=== PATIENT | male | born 1975 | race Caucasian/White ===

== ENCOUNTER → 2019-12-13 14:44 | Outpatient (BNVA) | payer MEDICARE, MEDICAID, SELFPAY | PROVIDERS: PCP Family Medicine; Visit Provider Urology | DX: Z76.89 Persons encountering health services in other specified circumstances (principal) | CPT/HCPCS: 99202 ==

== ENCOUNTER → 2020-01-10 11:13 | Outpatient (BNVA) | payer MEDICARE, MEDICAID, SELFPAY | PROVIDERS: PCP Family Medicine; Referring Provider Family Medicine; Visit Provider Urology | DX: Z76.89 Persons encountering health services in other specified circumstances (principal) | CPT/HCPCS: Q3014 ==

== ENCOUNTER 2020-01-27 07:23 | Outpatient (REF) | payer MEDICARE, MEDICAID, SELFPAY | END 2020-01-27 07:24 | disposition home or self-care (01) | LOC: HO.LAB 07:23 | PROVIDERS: Visit Provider Internal Medicine | DX: Z20.828 Contact with and (suspected) exposure to other viral communicable diseases (principal) | CPT/HCPCS: C9803; U0003 ==

== ENCOUNTER → 2020-02-26 14:39 | Outpatient (BNVA) | payer MEDICARE, MEDICAID, SELFPAY | PROVIDERS: PCP Family Medicine; Visit Provider Internal Medicine Cardiovascular Disease | DX: Q90.9 Down syndrome, unspecified (principal) | CPT/HCPCS: 93005; 99212 ==

== ENCOUNTER 2020-05-13 09:53 | Outpatient (REF) | payer MEDICARE, MEDICAID, SELFPAY ==
[2020-05-13 10:40] LABS: MANUAL DIFF FLAG NO
[2020-05-13 10:58] LABS: Basophils Absolute Auto 0.1 X10*3/uL (0.0-0.2); Basophils Percent Auto 1.9 % (0-2); Eosinophils Absolute Auto 0.1 X10*3/uL (0.0-0.4); Eosinophils Percent Auto 0.8 % (0-4); Hematocrit 45.6 % (42-52); Hemoglobin 15.3 g/dl (14.0-18.0); Imm Gran Pct Auto 1.6 % (0.0-0.4); Lymphocytes Absolute Auto 1.6 X10*3/uL (1.2-4.9); Mean Corpuscular HGB Conc 33.6 g/dl (31.0-36.0); Mean Corpuscular Hemoglobin 32.4 pg (27.0-33.0); Mean Corpuscular Volume 96.6 fL (80-98); Mean Platelet Volume 10.3 fL (9.4-12.4); Monocytes Absolute Auto 0.4 X10*3/uL (0.1-1.2); Monocytes Percent Auto 5.7 % (2-11); Neutrophils Absolute Auto 4.3 X10*3/uL (2.0-8.3); Platelet Count 199 X10*3/uL (160-400); Red Blood Count 4.72 X10*6/uL (4.60-5.80); Red Cell Distribution Width 12.9 % (11.0-16.0); White Blood Count 6.5 X10*3/uL (4.8-10.8)
[2020-05-13 11:21] LABS: Estimated Average Glucose 105 mg/dL; Hemoglobin A1c % 5.3 %
[2020-05-13 12:25] LABS: Alanine Aminotransferase 27 U/L (0-40); Albumin Level 4.4 g/dL (3.5-5.0); Alkaline Phosphatase 68 U/L (39-117); Anion Gap 13 (12-20); Aspartate Amino Transferase 31 U/L (5-37); Bilirubin Total 0.4 mg/dL (0.0-1.0); Blood Urea Nitrogen 12 mg/dL (9-16); Calcium 8.6 mg/dL (8.4-10.2); Carbon Dioxide 30 mmol/L (22-29); Chloride 102 mmol/L (96-108); Cholesterol 228 mg/dL; Estimated Glomerular Filt Rate > 60; Glucose Random 87 mg/dL (60-115); HDL Cholesterol 45 mg/dL; LDL Cholesterol Calculated 151 mg/dl; Potassium 4.9 mmol/L (3.3-5.1); Sodium 140 mmol/L (135-145); Total Protein 7.1 g/dL (6.5-8.0); Triglycerides 164 mg/dL
[2020-05-14 07:56] LABS: Prolactin 9.6 ng/mL (2.0-18.0)
== END 2020-05-13 09:54 | disposition home or self-care (01) ==
LOC: HO.LAB 09:53
PROVIDERS: PCP Family Medicine; Visit Provider Psychiatry & Neurology Child & Adolescent Psychiatry
DX: F29 Unspecified psychosis not due to a substance or known physiological condition (principal)
CPT/HCPCS: 36415; 80053; 80061; 83036; 84146; 85025

== ENCOUNTER → 2020-07-11 10:49 | Outpatient (BNVA) | payer MEDICARE, MEDICAID, SELFPAY | PROVIDERS: PCP Family Medicine; Visit Provider Urology | DX: R39.11 Hesitancy of micturition (principal); R39.14 Feeling of incomplete bladder emptying | CPT/HCPCS: 51798; 99212 ==

== ENCOUNTER → 2020-10-10 10:03 | Outpatient (BNVA) | payer MEDICARE, MEDICAID, SELFPAY | PROVIDERS: PCP Family Medicine; Visit Provider Urology | DX: R39.11 Hesitancy of micturition (principal); N32.0 Bladder-neck obstruction | CPT/HCPCS: 99212 ==

== ENCOUNTER → 2021-01-09 08:51 | Outpatient (BNVA) | payer MEDICARE, MEDICAID, SELFPAY | PROVIDERS: PCP Family Medicine; Visit Provider Urology | DX: N32.0 Bladder-neck obstruction (principal); R39.11 Hesitancy of micturition | CPT/HCPCS: 52000; 99212 ==

== ENCOUNTER → 2021-01-14 20:18 | Outpatient (REF) | payer MEDICARE, MEDICAID, SELFPAY | LOC: HO.SL 20:18 | PROVIDERS: Visit Provider Psychiatry & Neurology Neurology | DX: G47.33 Obstructive sleep apnea (adult) (pediatric) (principal) | CPT/HCPCS: 95811 ==

== ENCOUNTER → 2021-03-18 15:12 | Outpatient (BNVA) | payer MEDICARE, MEDICAID, SELFPAY | PROVIDERS: PCP Family Medicine; Referring Provider Family Medicine; Visit Provider Internal Medicine Cardiovascular Disease | DX: I45.10 Unspecified right bundle-branch block (principal) | CPT/HCPCS: 93005; 99212 ==

== ENCOUNTER 2021-03-31 09:43 | Day surgery (SDC) | payer MEDICARE, MEDICAID, SELFPAY ==
[2021-03-24 15:41] VITALS: BMI 33.8
--- NOTE | 2021-03-27 11:23 | MHC.SHP ---
Pre-Procedural Eval Section A Date of Service: 03/27/21 The patient is an INPATIENT: No Changes since office visit: No Cold of Flu in the past 2 weeks, No New Medical Problems, No Changes in Medication and No Patient answered all questions The History & Physical has been completed within 30 days and I have reviewed it.: Yes Section B Chief Complaint: bilateral cataract Allergies: Allergies Allergy/AdvReac Type Severity Reaction Status Date / Time lactose Allergy Intermediate Diarrhea Verified 03/24/21 15:40 Plan Diagnosis/Plan: Unchanged I have reviewed the history and physical and performed a pertinent physical examination on my patient. No changes have occurred unless specified.
--- NOTE | 2021-03-28 09:48 | HO.ANESPROP2 ---
Documented by User: Deepa Resendiz NP 03/28/21 09:50 HPI - Anesthesia Eval Consult details Narrative: 45yo M for Bilateral Cataract Extraction IOL Insertion PCP cleared Stable with cardiol 03/2021 No previous cataract on record Downs syndrome - resides at long term, Mom is guardian PMFSH Active Problems Active Problems: All Active Problems (Updated 03/25/21 @ 13:33 by Raquel Funes CNP) Fatigue (Acute) Bladder outlet obstruction (Acute) Feeling of incomplete bladder emptying (Acute) Urinary hesitancy (Acute) Down syndrome (Acute) Past Medical History Medical History Allergic rhinitis Anxiety disorder Chronic fatigue syndrome COVID-19 vaccine series completed Dermatitis Down syndrome H/O esophageal reflux Hx: recurrent pneumonia Hyperlipidemia Hypothyroidism Insomnia Joint pain ZEN (obstructive sleep apnea) Resides in alf care facility Surgical History Surgical History (Updated 03/24/21 @ 15:39 by Sil Lerma RN) History of lung surgery Hx of dental roman catholic Social History Social History Housing Other:: long term Are you a primary animal care taker to a significant other at home: No Do you presently have visiting nurse or other home services: No Patient Tobacco Use Status: Never used Tobacco Use of substances other than those prescribed or required for medical reasons: No Have you been hit, kicked, punched, or otherwise hurt by someone within the past year? If so, by whom?: No Advance Directives Information Provided: Yes (as above noted) Advance Directives on File: No Recently lost weight without trying: No Eating poorly because of decreased appetite: No Nutrition Risks: No Nutritional Risk Poor oral hygiene: No (has upper permanent bridge) Meds Allergies Allergy/AdvReac Type Severity Reaction Status Date / Time lactose Allergy Intermediate Diarrhea Verified 03/24/21 15:40 Home Medications Medication Instructions Recorded Confirmed Last Taken Type benztropine 0.5 mg tablet 0.5 mg PO DAILY 12/13/19 03/24/21 Unknown History cholestyramine (with sugar) 4 gram 1 ea PO DAILY 12/13/19 03/24/21 Unknown History powder for susp in a packet clindamycin phosphate 1 % topical 1 appl TOPICAL DAILY 12/13/19 03/24/21 Unknown History solution clonazepam 0.5 mg tablet 0.5 mg PO DAILY PRN 12/13/19 03/24/21 Unknown History donepezil 10 mg tablet 10 mg PO DAILY 12/13/19 03/24/21 Unknown History levothyroxine 88 mcg tablet 88 mcg PO DAILY 12/13/19 03/24/21 Unknown History paroxetine HCl 30 mg tablet 30 mg PO DAILY 12/13/19 03/24/21 Unknown History risperidone 0.5 mg tablet 0.5 mg PO BEDTIME 12/13/19 03/24/21 Unknown History cholecalciferol (vitamin D3) 25 25 mcg PO DAILY 02/26/20 03/24/21 Unknown History mcg (1,000 unit) capsule memantine 10 mg tablet 10 mg PO BID 02/26/20 03/24/21 Unknown History multivitamin 1 tab PO DAILY 02/26/20 03/24/21 Unknown History risperidone 1 mg tablet 1 mg PO QAM tab 02/26/20 03/24/21 Unknown History ammonium lactate 12 % topical cream 1 appl TOPICAL BID 07/11/20 03/24/21 Unknown History ketoconazole 2 % topical cream 1 appl TOPICAL DAILY 01/09/21 03/24/21 Unknown History Exam Exam Date and Time: March 28, 2021 0948 Height,Weight and Vital Signs: Height 5 ft 2 in Weight 83.915 kg Narrative Narrative: EKG 03/2021 NSR @ 62 Incomplete RBBB Assessment and Plan Assessment Anesthesia Assessment: Chart Reviewed Documented by User: Danica Baptiste MD 03/31/21 11:03 [facility] Past Medical History Medical History Allergic rhinitis Anxiety disorder Chronic fatigue syndrome COVID-19 vaccine series completed Dermatitis Down syndrome H/O esophageal reflux Hx: recurrent pneumonia Hyperlipidemia Hypothyroidism Insomnia Joint pain ZEN (obstructive sleep apnea) Resides in alf care facility Family History Family history of problems with anesthesia: No Surgical History Surgical History (Updated 03/24/21 @ 15:39 by Sil Lerma RN) History of lung surgery Hx of dental roman catholic History of Problems with Anesthesia: No Social History Social History Housing Other:: long term Are you a primary animal care taker to a significant other at home: No Do you presently have visiting nurse or other home services: No Patient Tobacco Use Status: Never used Tobacco Use of substances other than those prescribed or required for medical reasons: No Have you been hit, kicked, punched, or otherwise hurt by someone within the past year? If so, by whom?: No Advance Directives Information Provided: Yes (as above noted) Advance Directives on File: No Recently lost weight without trying: No Eating poorly because of decreased appetite: No Nutrition Risks: No Nutritional Risk Poor oral hygiene: No (has upper permanent bridge) Meds Allergies Allergy/AdvReac Type Severity Reaction Status Date / Time lactose Allergy Intermediate Diarrhea Verified 03/24/21 15:40 Home Medications Medication Instructions Recorded Confirmed Last Taken Type benztropine 0.5 mg tablet 0.5 mg PO DAILY 12/13/19 03/24/21 Unknown History cholestyramine (with sugar) 4 gram 1 ea PO DAILY 12/13/19 03/24/21 Unknown History powder for susp in a packet clindamycin phosphate 1 % topical 1 appl TOPICAL DAILY 12/13/19 03/24/21 Unknown History solution clonazepam 0.5 mg tablet 0.5 mg PO DAILY PRN 12/13/19 03/24/21 Unknown History donepezil 10 mg tablet 10 mg PO DAILY 12/13/19 03/24/21 Unknown History levothyroxine 88 mcg tablet 88 mcg PO DAILY 12/13/19 03/24/21 Unknown History paroxetine HCl 30 mg tablet 30 mg PO DAILY 12/13/19 03/24/21 Unknown History risperidone 0.5 mg tablet 0.5 mg PO BEDTIME 12/13/19 03/24/21 Unknown History cholecalciferol (vitamin D3) 25 25 mcg PO DAILY 02/26/20 03/24/21 Unknown History mcg (1,000 unit) capsule memantine 10 mg tablet 10 mg PO BID 02/26/20 03/24/21 Unknown History multivitamin 1 tab PO DAILY 02/26/20 03/24/21 Unknown History risperidone 1 mg tablet 1 mg PO QAM tab 02/26/20 03/24/21 Unknown History ammonium lactate 12 % topical cream 1 appl TOPICAL BID 07/11/20 03/24/21 Unknown History ketoconazole 2 % topical cream 1 appl TOPICAL DAILY 01/09/21 03/24/21 Unknown History Exam Airway Mallampati Class: II (Narrow pallate) TM Dist: >3cm Neck ROM: Full Heart: rrr Lungs: cta Assessment and Plan Assessment Anesthesia Assessment: Anesthesia Plan Discussed and Chart Reviewed Final Anesthetic Review Family History of Problems with Anesthesia: No History of Problems with Anesthesia: No NPO: Yes ASA Class: II Final Preanesthetic Review: No Changes in Pt Med Stat, Meds/Allgs Chart Reviewed and Consent Obtained/Reviewed Patient Risk: Intermediate Procedure Risk: Intermediate Anesthetic Plan Anesthetic Plan: MAC: Disposition: Standard PACU
[2021-03-31 10:31] VITALS: BP 129/68; PULSE 71; RESP 16; TEMP 36.2; O2SAT 99
[2021-03-31] MEDS: Tetracaine HCl/PF 0.5% Oph Sol 4 ML DROPS 1 DROP EYE-BOTH (10:53)
[2021-03-31] MEDS: Lactated Ringers 500 ML 50 ML IV (10:53)
[2021-03-31] MEDS: Tropicamide 1 % Ophth Sol 3 ML BTL 1 DROP EYE-BOTH ×3 (10:55→11:04)
[2021-03-31] MEDS: Phenylephrine HCL 2.5% Oph SoL 2 ML BOTTLE 1 DROP EYE-BOTH ×3 (10:58→11:08)
--- NOTE | 2021-03-31 13:30 | PC.NURSE ---
Consents for surgical procedure and anesthesia obtained via phone call to patients HCP and Mother, Arminda. Dr. Sanchez, Arminda Christy, and this RN all aware of plan to proceed with left eye cataract surgery under MAC and if case is switched to general anesthesia for any reason, both left eye and right eye cataract surgeries will be done.
[2021-03-31 13:40] VITALS: BP 107/61; PULSE 60; RESP 16; TEMP 36.4; O2SAT 95
--- NOTE | 2021-03-31 13:41 | HO.PNOPHT ---
Ophthalmology Procedure Procedure Date of Service: 03/31/21 Ophthalmology Viscoelastic: Healaustin Duet Dual Pack Pro Ophthalmology Lenses: TECCYNTHIA [id number] (21) Procedure Notes: PREOPERATIVE DIAGNOSIS: Decreased visual acuity left eye secondary to cataract POSTOPERATIVE DIAGNOSIS: Same PROCEDURE: Left cataract extraction with intraocular lens insertion SURGEON: Hermes Howard M.D. ANESTHESIA: Topical/MAC ESTIMATED BLOOD LOSS: None COMPLICATIONS: None After obtaining informed consent, the patient was brought to the operation room suite and placed in the supine position. After adequate sedation per anesthesia, topical drops of Tetracaine were given to the left eye. The eye was then prepped and draped in the usual sterile fashion. The operating room microscope was then positioned over the operative eye and a lid speculum placed. A paracentesis was created. Viscoelastic was then instilled into the anterior chamber. A three plane incision was then created temporally, utilizing a 2.85 mm keratome. Capsulotomy forceps were then utilized to create a circular tear capsulotomy. Hydrodissection and hydrodelineation were carried out until adequate mobilization of the nucleus occurred. Phacoemulsification was then utilized to remove the dense central nucleus followed by removal of the cortical material utilizing the automated aspiration irrigation unit. Viscoat elastic was instilled into the posterior capsular bag followed by placement of a posterior chamber intraocular lens without difficulty. The residual Viscoat elastic was then removed utilizing the automated IA machine. The wound was check and found to be watertight. The patient tolerated the procedure well and the lid speculum was removed. Intracameral injection of Vigamox 0.1 mL followed by a subtenon injection of Kenalog-40 0.2 mL were administered. The patient will be seen in the a.m.
== END 2021-03-31 15:25 | disposition home or self-care (01) ==
PROVIDERS: PCP Family Medicine; Visit Provider Ophthalmology
PROC: (CPT 66985; principal; 2021-03-31 07:30)
DX: H25.12 Age-related nuclear cataract, left eye (principal); H50.00 Unspecified esotropia; H54.7 Unspecified visual loss; Q90.9 Down syndrome, unspecified; E03.9 Hypothyroidism, unspecified; F41.1 Generalized anxiety disorder; F03.90 Unspecified dementia, unspecified severity, without behavioral disturbance, psychotic disturbance, mood disturbance, and anxiety; G47.33 Obstructive sleep apnea (adult) (pediatric); Z79.899 Other long term (current) drug therapy
CPT/HCPCS: 66984; J2250; J2405; J3010; J3300; V2632

== ENCOUNTER 2021-04-07 07:13 | Day surgery (SDC) | payer MEDICARE, MEDICAID, SELFPAY ==
[2021-04-02 14:03] VITALS: BMI 33.8
--- NOTE | 2021-04-03 08:25 | MHC.SHP ---
Pre-Procedural Eval Section A Date of Service: 04/03/21 The patient is an INPATIENT: No Changes since office visit: No Cold of Flu in the past 2 weeks, No New Medical Problems, No Changes in Medication and No Patient answered all questions The History & Physical has been completed within 30 days and I have reviewed it.: Yes Section B Chief Complaint: cataract right eye Allergies: Allergies Allergy/AdvReac Type Severity Reaction Status Date / Time lactose Allergy Intermediate Diarrhea Verified 03/24/21 15:40 Plan Diagnosis/Plan: Unchanged I have reviewed the history and physical and performed a pertinent physical examination on my patient. No changes have occurred unless specified.
--- NOTE | 2021-04-03 12:46 | P.CONAN_ITS ---
Documented by User: Deepa Resendiz NP 04/03/21 12:49 HPI - Anesthesia Eval Consult details Narrative: 45yo M for Right Cataract Extraction IOL Insertion PCP cleared Stable with cardiology 03/2021 Left eye 03/31/21 with MAC: Fent 50, Midaz 0.5, Zofran 4 Downs sydrome, resides at [facility], Mom is guardian PMFSH Active Problems Active Problems: All Active Problems (Updated 03/25/21 @ 13:33 by Raquel Funes CNP) Bladder outlet obstruction (Acute) Feeling of incomplete bladder emptying (Acute) Urinary hesitancy (Acute) Fatigue (Acute) Down syndrome (Acute) Past Medical History Medical History Allergic rhinitis Anxiety disorder Chronic fatigue syndrome COVID-19 vaccine series completed Dermatitis Down syndrome H/O esophageal reflux Hx: recurrent pneumonia Hyperlipidemia Hypothyroidism Insomnia Joint pain ZEN (obstructive sleep apnea) Resides in exterminator helper care facility Family History Family history of problems with anesthesia: No Surgical History Surgical History (Updated 04/02/21 @ 14:02 by Sil Lerma RN) History of left cataract surgery History of lung surgery Hx of dental hoahaoism History of Problems with Anesthesia: No Social History Social History (Updated 04/02/21 @ 14:09 by Sil Lerma RN) Household Members Other:: [facility] Housing Other:: [facility] Are you a primary hospice care transitions coordinator to a significant other at home: No Do you presently have visiting nurse or other home services: Yes (usp services) Patient Tobacco Use Status: Never used Tobacco Use of substances other than those prescribed or required for medical reasons: No Have you been hit, kicked, punched, or otherwise hurt by someone within the past year? If so, by whom?: No Are you DNR?: No Advance Directives Information Provided: Yes Advance Directives on File: Yes Advance Directives Date on File: 03/31/21 Recently lost weight without trying: No Eating poorly because of decreased appetite: No Nutrition Risks: No Nutritional Risk Poor oral hygiene: No (upper permanent bridge) Meds Allergies Allergy/AdvReac Type Severity Reaction Status Date / Time lactose Allergy Intermediate Diarrhea Verified 03/24/21 15:40 Home Medications Medication Instructions Recorded Confirmed Last Taken Type benztropine 0.5 0.5 mg PO DAILY 12/13/19 04/02/21 Unknown History mg tablet cholestyramine 1 ea PO DAILY 12/13/19 04/02/21 Unknown History (with sugar) 4 gram powder for susp in a packet clindamycin 1 appl TOPICAL 12/13/19 04/02/21 Unknown History phosphate 1 % DAILY topical solution clonazepam 0.5 mg 0.5 mg PO DAILY 12/13/19 04/02/21 Unknown History tablet PRN donepezil 10 mg 10 mg PO DAILY 12/13/19 04/02/21 Unknown History tablet levothyroxine 88 88 mcg PO DAILY 12/13/19 04/02/21 Unknown History mcg tablet paroxetine HCl 30 30 mg PO DAILY 12/13/19 04/02/21 Unknown History mg tablet risperidone 0.5 0.5 mg PO 12/13/19 04/02/21 Unknown History mg tablet BEDTIME cholecalciferol 25 mcg PO DAILY 02/26/20 04/02/21 Unknown History (vitamin D3) 25 mcg (1,000 unit) capsule memantine 10 mg 10 mg PO BID 02/26/20 04/02/21 Unknown History tablet multivitamin 1 tab PO DAILY 02/26/20 04/02/21 Unknown History risperidone 1 mg 1 mg PO QAM tab 02/26/20 04/02/21 Unknown History tablet ammonium lactate 1 appl TOPICAL 07/11/20 04/02/21 Unknown History 12 % topical BID cream ketoconazole 2 % 1 appl TOPICAL 01/09/21 04/02/21 Unknown History topical cream DAILY Exam Exam Date and Time: April 03, 2021 1246 Height,Weight and Vital Signs: Height 5 ft 2 in Weight 83.915 kg Narrative Narrative: EKG 03/2021 NSR @ 62 Incomplete RBBB Assessment and Plan Assessment Anesthesia Assessment: Chart Reviewed Final Anesthetic Review Family History of Problems with Anesthesia: No History of Problems with Anesthesia: No Documented by User: Soni Strickland MD 04/07/21 08:46 PMFSH Past Medical History Medical History Allergic rhinitis Anxiety disorder Chronic fatigue syndrome COVID-19 vaccine series completed Dermatitis Down syndrome H/O esophageal reflux Hx: recurrent pneumonia Hyperlipidemia Hypothyroidism Insomnia Joint pain ZEN (obstructive sleep apnea) Resides in exterminator helper care facility Surgical History Surgical History (Updated 04/02/21 @ 14:02 by Sil Lerma RN) History of left cataract surgery History of lung surgery Hx of dental hoahaoism Social History Social History (Updated 04/02/21 @ 14:09 by Sil Lerma RN) Household Members Other:: [facility] Housing Other:: [facility] Are you a primary hospice care transitions coordinator to a significant other at home: No Do you presently have visiting nurse or other home services: Yes (usp services) Patient Tobacco Use Status: Never used Tobacco Use of substances other than those prescribed or required for medical reasons: No Have you been hit, kicked, punched, or otherwise hurt by someone within the past year? If so, by whom?: No Are you DNR?: No Advance Directives Information Provided: Yes Advance Directives on File: Yes Advance Directives Date on File: 03/31/21 Recently lost weight without trying: No Eating poorly because of decreased appetite: No Nutrition Risks: No Nutritional Risk Poor oral hygiene: No (upper permanent bridge) Meds Allergies Allergy/AdvReac Type Severity Reaction Status Date / Time lactose Allergy Intermediate Diarrhea Verified 03/24/21 15:40 Home Medications Medication Instructions Recorded Confirmed Last Taken Type benztropine 0.5 0.5 mg PO DAILY 12/13/19 04/02/21 Unknown History mg tablet cholestyramine 1 ea PO DAILY 12/13/19 04/02/21 Unknown History (with sugar) 4 gram powder for susp in a packet clindamycin 1 appl TOPICAL 12/13/19 04/02/21 Unknown History phosphate 1 % DAILY topical solution clonazepam 0.5 mg 0.5 mg PO DAILY 12/13/19 04/02/21 Unknown History tablet PRN donepezil 10 mg 10 mg PO DAILY 12/13/19 04/02/21 Unknown History tablet levothyroxine 88 88 mcg PO DAILY 12/13/19 04/02/21 Unknown History mcg tablet paroxetine HCl 30 30 mg PO DAILY 12/13/19 04/02/21 Unknown History mg tablet risperidone 0.5 0.5 mg PO 12/13/19 04/02/21 Unknown History mg tablet BEDTIME cholecalciferol 25 mcg PO DAILY 02/26/20 04/02/21 Unknown History (vitamin D3) 25 mcg (1,000 unit) capsule memantine 10 mg 10 mg PO BID 02/26/20 04/02/21 Unknown History tablet multivitamin 1 tab PO DAILY 02/26/20 04/02/21 Unknown History risperidone 1 mg 1 mg PO QAM tab 02/26/20 04/02/21 Unknown History tablet ammonium lactate 1 appl TOPICAL 07/11/20 04/02/21 Unknown History 12 % topical BID cream ketoconazole 2 % 1 appl TOPICAL 01/09/21 04/02/21 Unknown History topical cream DAILY Exam Airway Mallampati Class: III TM Dist: >3cm Neck ROM: Full Assessment and Plan Assessment Anesthesia Assessment: Anesthesia Plan Discussed Final Anesthetic Review NPO: Yes ASA Class: III Final Preanesthetic Review: No Changes in Pt Med Stat, Meds/Allgs Chart Reviewed, Consent Obtained/Reviewed and Anes Risks/Benef Reviewed Patient Risk: Intermediate Procedure Risk: Low Anesthetic Plan Anesthetic Plan: MAC: Disposition: Standard PACU
--- NOTE | 2021-04-03 12:46 | HO.ANESPROP2 ---
Documented by User: Deepa Resendiz NP 04/03/21 12:49 HPI - Anesthesia Eval Consult details Narrative: 45yo M for Right Cataract Extraction IOL Insertion PCP cleared Stable with cardiology 03/2021 Left eye 03/31/21 with MAC: Fent 50, Midaz 0.5, Zofran 4 Downs sydrome, resides at shelter, Mom is guardian PMFSH Active Problems Active Problems: All Active Problems (Updated 03/25/21 @ 13:33 by Raquel Funes CNP) Bladder outlet obstruction (Acute) Feeling of incomplete bladder emptying (Acute) Urinary hesitancy (Acute) Fatigue (Acute) Down syndrome (Acute) Past Medical History Medical History Allergic rhinitis Anxiety disorder Chronic fatigue syndrome COVID-19 vaccine series completed Dermatitis Down syndrome H/O esophageal reflux Hx: recurrent pneumonia Hyperlipidemia Hypothyroidism Insomnia Joint pain ZEN (obstructive sleep apnea) Resides in medical [facility] care facility Family History Family history of problems with anesthesia: No Surgical History Surgical History (Updated 04/02/21 @ 14:02 by Sil Lerma RN) History of left cataract surgery History of lung surgery Hx of dental latter-day History of Problems with Anesthesia: No Social History Social History (Updated 04/02/21 @ 14:09 by Sil Lerma RN) Household Members Other:: shelter Housing Other:: shelter Are you a primary career developer to a significant other at home: No Do you presently have visiting nurse or other home services: Yes (shelter services) Patient Tobacco Use Status: Never used Tobacco Use of substances other than those prescribed or required for medical reasons: No Have you been hit, kicked, punched, or otherwise hurt by someone within the past year? If so, by whom?: No Are you DNR?: No Advance Directives Information Provided: Yes Advance Directives on File: Yes Advance Directives Date on File: 03/31/21 Recently lost weight without trying: No Eating poorly because of decreased appetite: No Nutrition Risks: No Nutritional Risk Poor oral hygiene: No (upper permanent bridge) Meds Allergies Allergy/AdvReac Type Severity Reaction Status Date / Time lactose Allergy Intermediate Diarrhea Verified 03/24/21 15:40 Home Medications Medication Instructions Recorded Confirmed Last Taken Type benztropine 0.5 mg tablet 0.5 mg PO DAILY 12/13/19 04/02/21 Unknown History cholestyramine (with sugar) 4 gram 1 ea PO DAILY 12/13/19 04/02/21 Unknown History powder for susp in a packet clindamycin phosphate 1 % topical 1 appl TOPICAL DAILY 12/13/19 04/02/21 Unknown History solution clonazepam 0.5 mg tablet 0.5 mg PO DAILY PRN 12/13/19 04/02/21 Unknown History donepezil 10 mg tablet 10 mg PO DAILY 12/13/19 04/02/21 Unknown History levothyroxine 88 mcg tablet 88 mcg PO DAILY 12/13/19 04/02/21 Unknown History paroxetine HCl 30 mg tablet 30 mg PO DAILY 12/13/19 04/02/21 Unknown History risperidone 0.5 mg tablet 0.5 mg PO BEDTIME 12/13/19 04/02/21 Unknown History cholecalciferol (vitamin D3) 25 25 mcg PO DAILY 02/26/20 04/02/21 Unknown History mcg (1,000 unit) capsule memantine 10 mg tablet 10 mg PO BID 02/26/20 04/02/21 Unknown History multivitamin 1 tab PO DAILY 02/26/20 04/02/21 Unknown History risperidone 1 mg tablet 1 mg PO QAM tab 02/26/20 04/02/21 Unknown History ammonium lactate 12 % topical cream 1 appl TOPICAL BID 07/11/20 04/02/21 Unknown History ketoconazole 2 % topical cream 1 appl TOPICAL DAILY 01/09/21 04/02/21 Unknown History Exam Exam Date and Time: April 03, 2021 1246 Height,Weight and Vital Signs: Height 5 ft 2 in Weight 83.915 kg Narrative Narrative: EKG 03/2021 NSR @ 62 Incomplete RBBB Assessment and Plan Assessment Anesthesia Assessment: Chart Reviewed Final Anesthetic Review Family History of Problems with Anesthesia: No History of Problems with Anesthesia: No Documented by User: Soni Strickland MD 04/07/21 08:46 PMFSH Past Medical History Medical History Allergic rhinitis Anxiety disorder Chronic fatigue syndrome COVID-19 vaccine series completed Dermatitis Down syndrome H/O esophageal reflux Hx: recurrent pneumonia Hyperlipidemia Hypothyroidism Insomnia Joint pain ZEN (obstructive sleep apnea) Resides in medical terminologist care facility Surgical History Surgical History (Updated 04/02/21 @ 14:02 by Sil Lerma RN) History of left cataract surgery History of lung surgery Hx of dental latter-day Social History Social History (Updated 04/02/21 @ 14:09 by Sil Lerma RN) Household Members Other:: shelter Housing Other:: shelter Are you a primary career developer to a significant other at home: No Do you presently have visiting nurse or other home services: Yes (shelter services) Patient Tobacco Use Status: Never used Tobacco Use of substances other than those prescribed or required for medical reasons: No Have you been hit, kicked, punched, or otherwise hurt by someone within the past year? If so, by whom?: No Are you DNR?: No Advance Directives Information Provided: Yes Advance Directives on File: Yes Advance Directives Date on File: 03/31/21 Recently lost weight without trying: No Eating poorly because of decreased appetite: No Nutrition Risks: No Nutritional Risk Poor oral hygiene: No (upper permanent bridge) Meds Allergies Allergy/AdvReac Type Severity Reaction Status Date / Time lactose Allergy Intermediate Diarrhea Verified 03/24/21 15:40 Home Medications Medication Instructions Recorded Confirmed Last Taken Type benztropine 0.5 mg tablet 0.5 mg PO DAILY 12/13/19 04/02/21 Unknown History cholestyramine (with sugar) 4 gram 1 ea PO DAILY 12/13/19 04/02/21 Unknown History powder for susp in a packet clindamycin phosphate 1 % topical 1 appl TOPICAL DAILY 12/13/19 04/02/21 Unknown History solution clonazepam 0.5 mg tablet 0.5 mg PO DAILY PRN 12/13/19 04/02/21 Unknown History donepezil 10 mg tablet 10 mg PO DAILY 12/13/19 04/02/21 Unknown History levothyroxine 88 mcg tablet 88 mcg PO DAILY 12/13/19 04/02/21 Unknown History paroxetine HCl 30 mg tablet 30 mg PO DAILY 12/13/19 04/02/21 Unknown History risperidone 0.5 mg tablet 0.5 mg PO BEDTIME 12/13/19 04/02/21 Unknown History cholecalciferol (vitamin D3) 25 25 mcg PO DAILY 02/26/20 04/02/21 Unknown History mcg (1,000 unit) capsule memantine 10 mg tablet 10 mg PO BID 02/26/20 04/02/21 Unknown History multivitamin 1 tab PO DAILY 02/26/20 04/02/21 Unknown History risperidone 1 mg tablet 1 mg PO QAM tab 02/26/20 04/02/21 Unknown History ammonium lactate 12 % topical cream 1 appl TOPICAL BID 07/11/20 04/02/21 Unknown History ketoconazole 2 % topical cream 1 appl TOPICAL DAILY 01/09/21 04/02/21 Unknown History Exam Airway Mallampati Class: III TM Dist: >3cm Neck ROM: Full Assessment and Plan Assessment Anesthesia Assessment: Anesthesia Plan Discussed Final Anesthetic Review NPO: Yes ASA Class: III Final Preanesthetic Review: No Changes in Pt Med Stat, Meds/Allgs Chart Reviewed, Consent Obtained/Reviewed and Anes Risks/Benef Reviewed Patient Risk: Intermediate Procedure Risk: Low Anesthetic Plan Anesthetic Plan: MAC: Disposition: Standard PACU
[2021-04-07 07:32] VITALS: BP 115/67; PULSE 74; RESP 19; TEMP 36.1; O2SAT 97
[2021-04-07] MEDS: Lactated Ringers 500 ML 50 ML IV (07:34)
[2021-04-07] MEDS: Phenylephrine HCL 2.5% Oph SoL 2 ML BOTTLE 1 DROP EYE-RIGHT ×3 (07:35→07:37)
[2021-04-07] MEDS: Tropicamide 1 % Ophth Sol 3 ML BTL 1 DROP EYE-RIGHT ×3 (07:35→07:37)
[2021-04-07] MEDS: Tetracaine HCl/PF 0.5% Oph Sol 4 ML DROPS 1 DROP EYE-RIGHT (07:35)
--- NOTE | 2021-04-07 07:54 | PC.NURSE ---
spike to staff and mother concerning discharge
--- NOTE | 2021-04-07 09:05 | P.CONAN_ITS ---
[facility] Active Problems Active Problems: All Active Problems (Updated 03/25/21 @ 13:33 by Raquel Funes CNP) Bladder outlet obstruction (Acute) Feeling of incomplete bladder emptying (Acute) Urinary hesitancy (Acute) Fatigue (Acute) Down syndrome (Acute) Past Medical History Medical History Allergic rhinitis Anxiety disorder Chronic fatigue syndrome COVID-19 vaccine series completed Dermatitis Down syndrome H/O esophageal reflux Hx: recurrent pneumonia Hyperlipidemia Hypothyroidism Insomnia Joint pain ZEN (obstructive sleep apnea) Resides in half-way care facility Family History Family history of problems with anesthesia: No Surgical History Surgical History (Updated 04/02/21 @ 14:02 by Sil Lerma RN) History of left cataract surgery History of lung surgery Hx of dental mandaen History of Problems with Anesthesia: No Social History Social History (Updated 04/02/21 @ 14:09 by Sil Lerma RN) Household Members Other:: prison Housing Other:: prison Are you a primary patient care assistant to a significant other at home: No Do you presently have visiting nurse or other home services: Yes (prison services) Patient Tobacco Use Status: Never used Tobacco Use of substances other than those prescribed or required for medical reasons: No Have you been hit, kicked, punched, or otherwise hurt by someone within the past year? If so, by whom?: No Are you DNR?: No Advance Directives Information Provided: Yes Advance Directives on File: Yes Advance Directives Date on File: 03/31/21 Recently lost weight without trying: No Eating poorly because of decreased appetite: No Nutrition Risks: No Nutritional Risk Poor oral hygiene: No (upper permanent bridge) Meds Allergies Allergy/AdvReac Type Severity Reaction Status Date / Time lactose Allergy Intermediate Diarrhea Verified 03/24/21 15:40 Active Medications: Current Medications Lactated Ringer's (Lr) 500 mls @ 50 mls/hr IV .Q10H MICHI Stop: 04/07/21 17:14 Last Admin: 04/07/21 07:34 Dose: 50 mls/hr Documented by: Povidone Iodine (Povidone Iodine 5 % Ophth Soln 30 Ml Bottle) 1 appl EYE-RIGHT PREOP PRN PRN Reason: Pre-Op Surgical Implant Prophy Home Medications Medication Instructions Recorded Confirmed Last Taken Type benztropine 0.5 0.5 mg PO DAILY 12/13/19 04/02/21 Unknown History mg tablet cholestyramine 1 ea PO DAILY 12/13/19 04/02/21 Unknown History (with sugar) 4 gram powder for susp in a packet clindamycin 1 appl TOPICAL 12/13/19 04/02/21 Unknown History phosphate 1 % DAILY topical solution clonazepam 0.5 mg 0.5 mg PO DAILY 12/13/19 04/02/21 Unknown History tablet PRN donepezil 10 mg 10 mg PO DAILY 12/13/19 04/02/21 Unknown History tablet levothyroxine 88 88 mcg PO DAILY 12/13/19 04/02/21 Unknown History mcg tablet paroxetine HCl 30 30 mg PO DAILY 12/13/19 04/02/21 Unknown History mg tablet risperidone 0.5 0.5 mg PO 12/13/19 04/02/21 Unknown History mg tablet BEDTIME cholecalciferol 25 mcg PO DAILY 02/26/20 04/02/21 Unknown History (vitamin D3) 25 mcg (1,000 unit) capsule memantine 10 mg 10 mg PO BID 02/26/20 04/02/21 Unknown History tablet multivitamin 1 tab PO DAILY 02/26/20 04/02/21 Unknown History risperidone 1 mg 1 mg PO QAM tab 02/26/20 04/02/21 Unknown History tablet ammonium lactate 1 appl TOPICAL 07/11/20 04/02/21 Unknown History 12 % topical BID cream ketoconazole 2 % 1 appl TOPICAL 01/09/21 04/02/21 Unknown History topical cream DAILY Exam Exam Date and Time: April 07, 2021 0905 Height,Weight and Vital Signs: Height 5 ft 2 in Weight 83.915 kg Last Vital Signs Temp 97 F 04/07/21 07:32 Pulse 74 04/07/21 07:32 Resp 19 04/07/21 07:32 BP 115/67 04/07/21 07:32 Pulse Ox 97 04/07/21 07:32 Airway Mallampati Class: III TM Dist: >3cm Neck ROM: Full Assessment and Plan Assessment Anesthesia Assessment: Anesthesia Plan Discussed Final Anesthetic Review Family History of Problems with Anesthesia: No History of Problems with Anesthesia: No NPO: Yes ASA Class: III Final Preanesthetic Review: No Changes in Pt Med Stat, Meds/Allgs Chart Reviewed, Consent Obtained/Reviewed and Anes Risks/Benef Reviewed Patient Risk: Intermediate Procedure Risk: Low Anesthetic Plan Anesthetic Plan: MAC: Disposition: Standard PACU
--- NOTE | 2021-04-07 09:05 | HO.ANESPROP2 ---
[facility] Active Problems Active Problems: All Active Problems (Updated 03/25/21 @ 13:33 by Raquel Funes CNP) Bladder outlet obstruction (Acute) Feeling of incomplete bladder emptying (Acute) Urinary hesitancy (Acute) Fatigue (Acute) Down syndrome (Acute) Past Medical History Medical History Allergic rhinitis Anxiety disorder Chronic fatigue syndrome COVID-19 vaccine series completed Dermatitis Down syndrome H/O esophageal reflux Hx: recurrent pneumonia Hyperlipidemia Hypothyroidism Insomnia Joint pain ZEN (obstructive sleep apnea) Resides in [facility] care facility Family History Family history of problems with anesthesia: No Surgical History Surgical History (Updated 04/02/21 @ 14:02 by Sil Lerma RN) History of left cataract surgery History of lung surgery Hx of dental mandaen History of Problems with Anesthesia: No Social History Social History (Updated 04/02/21 @ 14:09 by Sil Lerma RN) Household Members Other:: [facility] Housing Other:: [facility] Are you a primary healthcare or medical to a significant other at home: No Do you presently have visiting nurse or other home services: Yes ([facility] services) Patient Tobacco Use Status: Never used Tobacco Use of substances other than those prescribed or required for medical reasons: No Have you been hit, kicked, punched, or otherwise hurt by someone within the past year? If so, by whom?: No Are you DNR?: No Advance Directives Information Provided: Yes Advance Directives on File: Yes Advance Directives Date on File: 03/31/21 Recently lost weight without trying: No Eating poorly because of decreased appetite: No Nutrition Risks: No Nutritional Risk Poor oral hygiene: No (upper permanent bridge) Meds Allergies Allergy/AdvReac Type Severity Reaction Status Date / Time lactose Allergy Intermediate Diarrhea Verified 03/24/21 15:40 Active Medications: Current Medications Lactated Ringer's (Lr) 500 mls @ 50 mls/hr IV .Q10H MICHI Stop: 04/07/21 17:14 Last Admin: 04/07/21 07:34 Dose: 50 mls/hr Documented by: Povidone Iodine (Povidone Iodine 5 % Ophth Soln 30 Ml Bottle) 1 appl EYE-RIGHT PREOP PRN PRN Reason: Pre-Op Surgical Implant Prophy Home Medications Medication Instructions Recorded Confirmed Last Taken Type benztropine 0.5 mg tablet 0.5 mg PO DAILY 12/13/19 04/02/21 Unknown History cholestyramine (with sugar) 4 gram 1 ea PO DAILY 12/13/19 04/02/21 Unknown History powder for susp in a packet clindamycin phosphate 1 % topical 1 appl TOPICAL DAILY 12/13/19 04/02/21 Unknown History solution clonazepam 0.5 mg tablet 0.5 mg PO DAILY PRN 12/13/19 04/02/21 Unknown History donepezil 10 mg tablet 10 mg PO DAILY 12/13/19 04/02/21 Unknown History levothyroxine 88 mcg tablet 88 mcg PO DAILY 12/13/19 04/02/21 Unknown History paroxetine HCl 30 mg tablet 30 mg PO DAILY 12/13/19 04/02/21 Unknown History risperidone 0.5 mg tablet 0.5 mg PO BEDTIME 12/13/19 04/02/21 Unknown History cholecalciferol (vitamin D3) 25 25 mcg PO DAILY 02/26/20 04/02/21 Unknown History mcg (1,000 unit) capsule memantine 10 mg tablet 10 mg PO BID 02/26/20 04/02/21 Unknown History multivitamin 1 tab PO DAILY 02/26/20 04/02/21 Unknown History risperidone 1 mg tablet 1 mg PO QAM tab 02/26/20 04/02/21 Unknown History ammonium lactate 12 % topical cream 1 appl TOPICAL BID 07/11/20 04/02/21 Unknown History ketoconazole 2 % topical cream 1 appl TOPICAL DAILY 01/09/21 04/02/21 Unknown History Exam Exam Date and Time: April 07, 2021 0905 Height,Weight and Vital Signs: Height 5 ft 2 in Weight 83.915 kg Last Vital Signs Temp 97 F 04/07/21 07:32 Pulse 74 04/07/21 07:32 Resp 19 04/07/21 07:32 BP 115/67 04/07/21 07:32 Pulse Ox 97 04/07/21 07:32 Airway Mallampati Class: III TM Dist: >3cm Neck ROM: Full Assessment and Plan Assessment Anesthesia Assessment: Anesthesia Plan Discussed Final Anesthetic Review Family History of Problems with Anesthesia: No History of Problems with Anesthesia: No NPO: Yes ASA Class: III Final Preanesthetic Review: No Changes in Pt Med Stat, Meds/Allgs Chart Reviewed, Consent Obtained/Reviewed and Anes Risks/Benef Reviewed Patient Risk: Intermediate Procedure Risk: Low Anesthetic Plan Anesthetic Plan: MAC: Disposition: Standard PACU
--- NOTE | 2021-04-07 09:19 | HO.PNOPHT ---
Ophthalmology Procedure Procedure Date of Service: 04/07/21 Ophthalmology Viscoelastic: Healaustin Duet Dual Pack Pro Ophthalmology Lenses: TECNIS [id number] (24.5) Procedure Notes: PREOPERATIVE DIAGNOSIS: Decreased visual acuity right eye secondary to cataract POSTOPERATIVE DIAGNOSIS: Same PROCEDURE: Right cataract extraction with intraocular lens insertion SURGEON: Hermes Howard M.D. ANESTHESIA: Topical/MAC ESTIMATED BLOOD LOSS: None COMPLICATIONS: None After obtaining informed consent, the patient was brought to the operating room suite and placed in the supine position. After adequate sedation per anesthesia, topical drops of Tetracaine were given to the right eye. The eye was then prepped and draped in the usual sterile fashion. The operating room microscope was then positioned over the operative eye and a lid speculum placed. A paracentesis was created. Viscoelastic was then instilled into the anterior chamber. A three plane incision was then created temporally, utilizing a 2.85 mm keratome. Capsulotomy forceps were then utilized to create a circular tear capsulotomy. Hydrodissection and hydrodelineation were carried out until adequate mobilization of the nucleus occurred. Phacoemulsification was then utilized to remove the dense central nucleus followed by removal of the cortical material utilizing the automated aspiration irrigation unit. Viscoelastic was instilled into the posterior capsular bag followed by placement of a posterior chamber intraocular lens without difficulty. The residual Viscoelastic was then removed utilizing the automated IA machine. The wound was checked and found to be watertight. The patient tolerated the procedure well and the lid speculum was removed. Intracameral injection of Vigamox 0.1 mL followed by a subtenon injection of Kenalog-40 0.2 mL were administered. The patient will be seen in the a.m.
[2021-04-07 09:46] VITALS: BP 116/48; PULSE 64; RESP 16; TEMP 36.1; O2SAT 98
== END 2021-04-07 10:00 | disposition home or self-care (01) ==
PROVIDERS: PCP Family Medicine; Visit Provider Ophthalmology
PROC: (CPT 66985; principal; 2021-04-07 09:20)
DX: H25.11 Age-related nuclear cataract, right eye (principal); H52.13 Myopia, bilateral; H54.7 Unspecified visual loss; Q90.9 Down syndrome, unspecified; E03.9 Hypothyroidism, unspecified; F41.1 Generalized anxiety disorder; Z79.899 Other long term (current) drug therapy
CPT/HCPCS: 66984; J2250; J3010; J3300; V2632

== ENCOUNTER → 2021-04-10 09:59 | Outpatient (BNVA) | payer MEDICARE, MEDICAID, SELFPAY | PROVIDERS: PCP Family Medicine; Visit Provider Nurse Practitioner Family | DX: Z13.89 Encounter for screening for other disorder (principal) ==

== ENCOUNTER → 2021-04-10 10:30 | Outpatient (BNVA) | payer MEDICARE, MEDICAID, SELFPAY | PROVIDERS: PCP Family Medicine; Visit Provider Nurse Practitioner Family | DX: G47.33 Obstructive sleep apnea (adult) (pediatric) (principal); F02.81 Dementia in other diseases classified elsewhere, unspecified severity, with behavioral disturbance | CPT/HCPCS: 99212 ==

== ENCOUNTER → 2021-06-17 14:51 | Outpatient (REF) | payer MEDICARE, MEDICAID, SELFPAY ==
--- NOTE | 2021-06-17 15:01 | ECG_ITS ---
Test Reason : HIGH RISK MED Blood Pressure : / mmHG Vent. Rate : 070 BPM Atrial Rate : 070 BPM P-R Int : 144 ms QRS Dur : 102 ms QT Int : 392 ms P-R-T Axes : 013 070 016 degrees QTc Int : 423 ms Normal sinus rhythm Incomplete right bundle branch block Abnormal ECG When compared with ECG of 28-NOV-2019 09:38, No significant change was found Referred By: Martin Zee Electronically Signed By:Otto Hernandez
[2021-06-17 15:20] LABS: MANUAL DIFF FLAG NO
[2021-06-17 15:25] LABS: Basophils Absolute Auto 0.1 X10*3/uL (0.0-0.2); Basophils Percent Auto 1.9 % (0-2); Eosinophils Absolute Auto 0.1 X10*3/uL (0.0-0.4); Eosinophils Percent Auto 0.9 % (0-4); Hematocrit 44.8 % (42.0-52.0); Hemoglobin 15.1 g/dl (14.0-18.0); Imm Gran Abs Auto 0.13 X10*3/uL (0.00-0.03); Lymphocytes Absolute Auto 1.7 X10*3/uL (1.2-4.9); Lymphocytes Percent Auto 27.4 % (20-40); Mean Corpuscular HGB Conc 33.7 g/dl (31.0-36.0); Mean Corpuscular Hemoglobin 32.4 pg (27.0-33.0); Mean Corpuscular Volume 96.1 fL (80.0-98.0); Mean Platelet Volume 9.6 fL (9.4-12.4); Monocytes Absolute Auto 0.5 X10*3/uL (0.1-1.2); Monocytes Percent Auto 7.2 % (2-11); Neutrophils Absolute Auto 3.8 x10*3/uL (2.0-8.3); Neutrophils Percent Auto 60.6 % (45-73); Platelet Count 200 X10*3/uL (160-400); Red Blood Count 4.66 X10*6/uL (4.60-5.80); Red Cell Distribution Width 13.2 % (11.0-16.0); White Blood Count 6.4 X10*3/uL (4.8-10.8)
[2021-06-17 15:36] LABS: Estimated Average Glucose 103 mg/dL; Hemoglobin A1c % 5.2 %
[2021-06-17 15:48] LABS: Alanine Aminotransferase 25 U/L (0-40); Albumin Level 4.2 g/dL (3.5-5.0); Alkaline Phosphatase 78 U/L (39-117); Anion Gap 11 (12-20); Aspartate Amino Transferase 30 U/L (5-37); Bilirubin Total 0.3 mg/dL (0.0-1.0); Blood Urea Nitrogen 16 mg/dL (9-16); Calcium 9.2 mg/dL (8.4-10.2); Carbon Dioxide 30 mmol/L (22-29); Chloride 103 mmol/L (96-108); Cholesterol 232 mg/dL; Estimated Glomerular Filt Rate > 60; Glucose Random 86 mg/dL (60-115); HDL Cholesterol 41 mg/dL; LDL Cholesterol Calculated 133 mg/dl; Potassium 4.4 mmol/L (3.3-5.1); Sodium 140 mmol/L (135-145); Total Protein 7.1 g/dL (6.5-8.0); Triglycerides 290 mg/dL
[2021-06-18 06:57] LABS: Prolactin 7.5 ng/mL (2.0-18.0)
== END ==
LOC: HO.CARD 14:51
PROVIDERS: Visit Provider Psychiatry & Neurology Child & Adolescent Psychiatry
DX: F41.1 Generalized anxiety disorder (principal); F29 Unspecified psychosis not due to a substance or known physiological condition; Z79.899 Other long term (current) drug therapy
CPT/HCPCS: 36415; 80053; 80061; 83036; 84146; 85025; 93005

== ENCOUNTER → 2021-07-22 14:42 | Outpatient (BNVA) | payer MEDICARE, MEDICAID, SELFPAY | PROVIDERS: PCP Family Medicine; Visit Provider Urology | DX: R33.9 Retention of urine, unspecified (principal) | CPT/HCPCS: 51798; 99212 ==

== ENCOUNTER → 2021-08-26 13:52 | Outpatient (BNVA) | payer MEDICARE, MEDICAID, SELFPAY | PROVIDERS: PCP Family Medicine; Visit Provider Psychiatry & Neurology Neurology | DX: G47.33 Obstructive sleep apnea (adult) (pediatric) (principal); Q90.9 Down syndrome, unspecified; F02.81 Dementia in other diseases classified elsewhere, unspecified severity, with behavioral disturbance; Z79.899 Other long term (current) drug therapy | CPT/HCPCS: 99212 ==

== ENCOUNTER → 2021-09-16 10:50 | Outpatient (BNVA) | payer MEDICARE, MEDICAID, SELFPAY | PROVIDERS: PCP Family Medicine; Visit Provider Urology | DX: R33.9 Retention of urine, unspecified (principal); R39.11 Hesitancy of micturition; R39.14 Feeling of incomplete bladder emptying; Z79.899 Other long term (current) drug therapy | CPT/HCPCS: 51798; 99212 ==

== ENCOUNTER → 2021-10-28 12:50 | Outpatient (BNVA) | payer MEDICARE, MEDICAID, SELFPAY | PROVIDERS: PCP Family Medicine; Visit Provider Psychiatry & Neurology Neurology | DX: F29 Unspecified psychosis not due to a substance or known physiological condition (principal); F02.81 Dementia in other diseases classified elsewhere, unspecified severity, with behavioral disturbance; Q90.9 Down syndrome, unspecified; G47.33 Obstructive sleep apnea (adult) (pediatric) | CPT/HCPCS: 99212 ==

== ENCOUNTER 2021-12-16 14:55 | Inpatient (IN) | payer MEDICARE, MEDICAID, SELFPAY ==
--- NOTE | ~2021-12-16 | MR_ITS ---
EXAMINATION: MR BRAIN WITHOUT CONTRAST CLINICAL INFORMATION: Lower extremity weakness. COMPARISON: CT scan of the head 12/16/2021. TECHNIQUE: Multiplanar MR imaging of the brain was performed without contrast. FINDINGS: There are scattered nonspecific foci of T2 FLAIR signal hyperintensity primarily involving the periventricular white matter. No acute territorial infarct. No pathological magnetic susceptibility artifact. Intracranial vascular flow voids are maintained. There is no intracranial mass effect or midline shift. No abnormal extra-axial collection. Lateral and third ventricles are normal. No hydrocephalus. Midline structures including the cervicomedullary junction are normal. No acute bone marrow signal changes. There is no mastoid or middle ear effusion. No active paranasal sinus disease. Globes and orbits are grossly symmetric. MR/MR head/brain wo/w con IMPRESSION: There are numerous chronic small vessel ischemic changes within the periventricular white matter. Otherwise unremarkable examination. No evidence of acute territorial infarct or hemorrhage.
--- NOTE | ~2021-12-16 | CT_ITS ---
EXAMINATION: CT HEAD WITHOUT CONTRAST CLINICAL INFORMATION: Bilateral leg weakness COMPARISON: 09/13/2016 TECHNIQUE: Contiguous axial imaging was performed from the skull base to vertex without intravenous administration of contrast. This CT examination was performed using dose optimization techniques as appropriate, variously including the following: *Automated exposure control *Adjustment of mA and/or kV according to patient size (this includes techniques or standardized protocols for targeted exams where dose is matched to indication/reason for exam; i.e. extremities or head) *Use of iterative reconstruction technique DLP: 680 mGy-cm FINDINGS: There is no midline shift. There is no mass effect. There is no hemorrhage. The basal cisterns appear patent. The posterior fossa is grossly within normal limits. There is no extra-axial collection. Once again symmetrical bilateral occipital gyral hyperdensity is seen. No suspicious increase. Central basal ganglia calcifications are once again seen. Review of the bone windows does not demonstrate a suspicious finding CT/CT head/brain wo IV con IMPRESSION: There is no acute midline shift or mass effect or hemorrhage. Chronic Change in the occipital region as described. There are some scattered areas of decreased attenuation in the white matter in this young patient. These could represent areas of white matter disease or infarct. Recommendation is MRI pre and postcontrast for full evaluation with diffusion weighted imaging.
--- NOTE | ~2021-12-16 | CT_ITS ---
EXAMINATION: CT CHEST WITHOUT CONTRAST CLINICAL INFORMATION: Evaluate for pneumonia COMPARISON: None TECHNIQUE: Multidetector volumetric CT imaging of the chest was done. Axial MIP volume rendering provided. Sagittal and coronal reformatted images were obtained. This CT examination was performed using dose optimization techniques as appropriate, variously including the following: *Automated exposure control *Adjustment of mA and/or kV according to patient size (this includes techniques or standardized protocols for targeted exams where dose is matched to indication/reason for exam; i.e. extremities or head) *Use of iterative reconstruction technique DLP: 171 mGy-cm FINDINGS: The thoracic inlet is within normal limits. The axillary regions are unremarkable. There is a pericardial effusion here. The partially visualized upper abdominal structures are grossly unremarkable. Centrally there is no bulky mediastinal adenopathy. Imaging of the lung gupta. Right lung; Mild right upper lung opacity in the apex may be chronic. Small area of atelectasis or infiltrate would need to be considered. Motion limits this exam. There is felt to be bronchial thickening in the lungs. Mild opacities at the right base may be atelectasis or mild infiltrate. Probable chronic change in the anterior lower lung zone. Left lung; Again bronchial thickening is noted here. Mild basilar atelectasis. Scattered areas of groundglass may represent small airways disease. Review of the bone windows does not demonstrate a suspicious finding. Degenerative change in the partially visualized cervical spine is noted. CT/CT chest wo IV con IMPRESSION: Exam is demonstrating a pericardial effusion which is small volume. Lung gupta there is bronchial thickening. Some patchy opacities at the right base could represent a small area of atelectasis or infiltrate. Probable atelectasis at the left base. Mild pleural change in the right upper lung laterally may be chronic and some probable chronic changes in the right middle lobe anterior. Somewhat nodular. Attention to follow-up Some scattered areas of groundglass opacity may represent small airways disease. Recommend follow-up scan low-dose noncontrast in 6 months for continued evaluation
--- NOTE | ~2021-12-16 | XR_ITS ---
EXAMINATION: XR CHEST CLINICAL INFORMATION: Lethargy. COMPARISON: None TECHNIQUE: Portable AP view of the chest was obtained. XR/XR chest 1V FINDINGS/IMPRESSION: The study is significantly limited by portable technique and low lung volumes. Cannot exclude small bibasilar patchy densities, raising the possibility of atelectasis and/or infiltrate. No consolidation, effusion or pneumothorax is seen. The cardiac silhouette is poorly evaluated. The mediastinum, diaphragm, bones and soft tissues appear unremarkable.
--- NOTE | ~2021-12-16 | XR_ITS ---
EXAMINATION: XR ABDOMEN KUB CLINICAL INDICATION: Pre-MRI screening. COMPARISON: None TECHNIQUE: AP view of the abdomen. FINDINGS: There is a nonobstructive bowel gas pattern. Mild to moderate gas and stool mild are seen within the colon distally to the rectum. Mild bilateral hip degenerative joint changes are seen. No radiopaque foreign body is seen. XR/XR KUB IMPRESSION: 1. Nonobstructive bowel gas pattern. No radiopaque foreign body. 2. Mild bilateral hip degenerative changes.
[2021-12-16 15:11] VITALS: BP 114/61; PULSE 55; RESP 18; TEMP 36; O2SAT 100; BMI 35.9
--- NOTE | 2021-12-16 15:46 | ECG_ITS ---
Test Reason : MED CLEARANCE Blood Pressure : / mmHG Vent. Rate : 057 BPM Atrial Rate : 057 BPM P-R Int : 140 ms QRS Dur : 096 ms QT Int : 436 ms P-R-T Axes : 011 077 045 degrees QTc Int : 424 ms Sinus bradycardia RSR' or QR pattern in V1 suggests right ventricular conduction delay Otherwise normal ECG When compared with ECG of 17-JUN-2021 15:05, No significant changes seen Referred By: Ananya Alejandre Electronically Signed By:CHIRAG URIBE MD
--- NOTE | 2021-12-16 16:02 | ED_ITS ---
HPI - General Adult General Chief complaint: General Medical Stated complaint: LETHARGY AND HALLUCINATIONS Time Seen by Provider: 12/16/21 15:14 Source: patient Mode of arrival: ambulatory Limitations: no limitations History of Present Illness HPI narrative: Patient comes to the emergency room via ambulance, coming from a day residential. According to the staff, patient has gradually become more lethargic throughout the last week and having difficulty walking. However, this has been intermittent. Towards the beginning of last week, patient started having shuffling gait, difficulty walking. Then he started gradually getting better until he was walking near normal. Then he started having difficulty walking all over again. According to the residential staff, sometimes he is weight and cannot get up. Patient at baseline is able to walk normally and unassisted Patient has history of Down syndrome and dementia and is unable to give any significant history. Patient answers yes to every question on review of system. Related Data Home Medications Medication Instructions Recorded Confirmed cholestyramine (with sugar) 4 gram 1 ea PO DAILY 12/13/19 08/26/21 powder for susp in a packet clindamycin phosphate 1 % topical 1 appl topical DAILY 12/13/19 08/26/21 solution levothyroxine 88 mcg tablet 88 mcg PO DAILY 12/13/19 08/26/21 multivitamin 1 tab PO DAILY 02/26/20 08/26/21 ammonium lactate 12 % topical cream 1 appl topical BID 07/11/20 08/26/21 ketoconazole 2 % topical cream 1 appl topical DAILY 01/09/21 08/26/21 acetaminophen 325 mg tablet 650 mg PO QID PRN 04/09/21 08/26/21 (Tylenol) benztropine 0.5 mg tablet 0.5 mg PO DAILY 04/09/21 08/26/21 carbamide peroxide 6.5 % ear drops 5 drp otic (ears) Q12H 04/09/21 08/26/21 (Debrox) chlorhexidine gluconate 4 % packet topical 04/09/21 08/26/21 topical packet fluticasone propionate 50 1 spray intranasal DAILY 04/09/21 08/26/21 mcg/actuation nasal spray,suspension (Flonase Allergy Relief) guaifenesin 100 mg/5 mL oral liquid 200 mg PO Q4H PRN 04/09/21 08/26/21 paroxetine HCl 40 mg tablet 40 mg PO DAILY 10/28/21 10/28/21 risperidone 1 mg tablet 1 mg PO BID 11/14/21 Previous Rx's Medication Instructions Recorded donepezil 10 mg tablet 10 mg PO DAILY #30 tabs 05/30/21 donepezil 10 mg tablet (Aricept) 10 mg PO BEDTIME #30 tabs 08/26/21 memantine 10 mg tablet (Namenda) 10 mg PO BID #60 tabs 08/26/21 bethanechol chloride 50 mg tablet 50 mg PO BID 90 days #180 tabs 09/19/21 terazosin 5 mg capsule 5 mg PO BEDTIME 30 days #90 caps 10/03/21 clonazepam 0.5 mg tablet 0.5 mg PO DAILY PRN abnormal 11/04/21 behavior #60 tabs clonazepam 0.5 mg tablet See Rx Instructions .Route 11/07/21 .COMPLEX #60 tabs Allergies Allergy/AdvReac Type Severity Reaction Status Date / Time lactose Allergy Intermediate Diarrhea Verified 10/28/21 13:03 Review of Systems Review of Systems: Constitutional : Weight loss over last week, fatigue, generalized malaise and weakness All of patient's answers are yes to review of systems Yes Other (Dementia, Alzheimer's) [facility] Past Medical History Medical History Allergic rhinitis Anxiety disorder Chronic fatigue syndrome COVID-19 vaccine series completed Dermatitis Down syndrome H/O esophageal reflux Hx: recurrent pneumonia Hyperlipidemia Hypothyroidism Insomnia Joint pain ZEN (obstructive sleep apnea) Resides in care home care facility Surgical History H/O colonoscopy H/O nasal septoplasty History of left cataract surgery History of lung surgery History of thoracotomy Hx of cataract surgery Hx of dental alevism Social History Social History Household Members Other:: residential Housing Other:: residential Are you a primary resident care technician to a significant other at home: No Do you presently have visiting nurse or other home services: Yes (residential services) Alcohol intake: never Patient Tobacco Use Status: Never used Tobacco Advance Directives: Yes Advance Directives on File: Yes Advance Directives Date on File: 03/31/21 Physical Exam ED Vital Signs: Vital Signs - 24 hr 12/16/21 15:11 Temperature 96.8 F Pulse Rate 55 Respiratory Rate 18 Blood Pressure 114/61 Pulse Oximetry 100 Oxygen Delivery Method Room Air BMI result Body Mass Index 35.9 Const Other: Appearance: Alert. Oriented X3. No acute distress. Eyes: Pupils equal, round and reactive to light. ENT: Pharynx normal. Neck: Normal inspection. Neck supple. No lymph nodes noted. No crepitus CVS: Normal heart rate and rhythm. Pulses normal. Normal S1 and S2 Respiratory: No respiratory distress. Breath sounds normal. No Wheezing. No rales Abdomen: Soft and nontender. No rigidity. No distention. Skin: Skin warm and dry. Normal skin color. Normal skin turgor. Extremities: No lower extremity edema. No Lacerations. No Rash Neuro: Oriented X 3. No motor deficit. No sensory deficit. Moving all extremities. No slurred speech. CN 2 through 12 grossly intact. Patient was able to stand up and walk with shuffling gait, which he was not doing before. According to the residential staff he was weight. However, patient usually walks with normal gait. 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 We will go ahead and order labs, chest x-ray. Everything is pending. I reviewed all labs. Patient has a mild UTI, however this is unlikely because of patient was shuffling gait. Patient does have good a normal patellar reflexes bilaterally. Patient was given 1 g of ceftriaxone. Also 1 L of fluids. Patient is not septic. Patient does not seem to have any back pain, imaging of the spine not indicated at this time. Head CT is pending. Patient may need a lumbar puncture. pt will likely need an MRI in the morning and neuro consult Sign-out given to Dr. Nascimento Medical Decision Making Lab Data Result diagrams: 12/16/21 16:57 12/16/21 16:57 Labs: Lab Results 12/16/21 12/16/21 12/16/21 Range/Units 16:40 16:57 16:57 WBC 5.6 (4.8-10.8) X10*3/uL RBC 4.56 L (4.60-5.80) X10*6/uL Hgb 14.6 (14.0-18.0) g/dl Hct 43.1 (42.0-52.0) % MCV 94.5 (80.0-98.0) fL MCH 32.0 (27.0-33.0) pg MCHC 33.9 (31.0-36.0) g/dl RDW 12.6 (11.0-16.0) % Plt Count 187 (160-400) X10*3/uL MPV 9.8 (9.4-12.4) fL Immature Gran % (Auto) 0.9 H (0.0-0.4) % Neut % (Auto) 64.9 (45-73) % Lymph % (Auto) 25.2 (20-40) % [place] % (Auto) 6.7 (2-11) % Eos % (Auto) 0.7 (0-4) % Baso % (Auto) 1.6 (0-2) % Lymph # (Auto) 1.4 (1.2-4.9) X10*3/uL [place] # (Auto) 0.4 (0.1-1.2) X10*3/uL Eos # (Auto) 0.0 (0.0-0.4) X10*3/uL Baso # (Auto) 0.1 (0.0-0.2) X10*3/uL Abs Immat Gran (auto) 0.05 H (0.00-0.03) X10*3/uL Absolute Neuts (auto) 3.7 (2.0-8.3) x10*3/uL Absolute Nucleated RBC 0.000 (0.0-0.012) X10*3/uL Nucleated RBC % (auto) 0.0 (0.0-0.2) /100WBC Sodium 142 (135-145) mmol/L Potassium 4.3 (3.3-5.1) mmol/L Chloride 103 (96-108) mmol/L Carbon Dioxide 29 (22-29) mmol/L Anion Gap 14 (12-20) BUN 10 (9-16) mg/dL Creatinine 0.80 (0.5-1.4) mg/dL Estim Creat Clear Calc 109.7 Estimated GFR > 60 Random Glucose 84 (60-115) mg/dL Lactic Acid (0.5-2.0) mmol/L Calcium 9.0 (8.4-10.2) mg/dL Magnesium 2.2 (1.6-2.6) mg/dL Total Bilirubin 0.4 (0.0-1.0) mg/dL Direct Bilirubin < 0.2 (0.0-0.5) mg/dL AST 27 (5-37) U/L ALT 22 (0-40) U/L Alkaline Phosphatase 68 (39-117) U/L Troponin I High Sens (<3.5-35.0) ng/L Total Protein 6.6 (6.5-8.0) g/dL Albumin 4.1 (3.5-5.0) g/dL Lipase 28 (8-78) U/L TSH (0.32-4.0) uIU/mL Urine Color Urine Appearance Urine pH (5.0-9.0) Ur Specific [place] (1.005-1.025) Urine Protein (Neg-Trace) mg/dL Urine Glucose (UA) (Negative) mg/dL Urine Ketones (Negative) mg/dL Urine Blood (Negative) Urine Nitrite (Negative) Ur Leukocyte Esterase (Negative) Urine RBC (0-2) /HPF Urine WBC (0-5) /HPF Ur Squamous Epith Cells (0-2) /HPF Urine Bacteria (None Seen) Hyaline Casts (0-2) /LPF COVID-19 (SHOAIB) Negative (Negative) COVID-19 Clin Com See Note 12/16/21 12/16/21 12/16/21 Range/Units 16:57 16:57 16:57 WBC (4.8-10.8) X10*3/uL RBC (4.60-5.80) X10*6/uL Hgb (14.0-18.0) g/dl Hct (42.0-52.0) % MCV (80.0-98.0) fL MCH (27.0-33.0) pg MCHC (31.0-36.0) g/dl RDW (11.0-16.0) % Plt Count (160-400) X10*3/uL MPV (9.4-12.4) fL Immature Gran % (Auto) (0.0-0.4) % Neut % (Auto) (45-73) % Lymph % (Auto) (20-40) % [place] % (Auto) (2-11) % Eos % (Auto) (0-4) % Baso % (Auto) (0-2) % Lymph # (Auto) (1.2-4.9) X10*3/uL [place] # (Auto) (0.1-1.2) X10*3/uL Eos # (Auto) (0.0-0.4) X10*3/uL Baso # (Auto) (0.0-0.2) X10*3/uL Abs Immat Gran (auto) (0.00-0.03) X10*3/uL Absolute Neuts (auto) (2.0-8.3) x10*3/uL Absolute Nucleated RBC (0.0-0.012) X10*3/uL Nucleated RBC % (auto) (0.0-0.2) /100WBC Sodium (135-145) mmol/L Potassium (3.3-5.1) mmol/L Chloride (96-108) mmol/L Carbon Dioxide (22-29) mmol/L Anion Gap (12-20) BUN (9-16) mg/dL Creatinine (0.5-1.4) mg/dL Estim Creat Clear Calc Estimated GFR Random Glucose (60-115) mg/dL Lactic Acid 0.8 (0.5-2.0) mmol/L Calcium (8.4-10.2) mg/dL Magnesium (1.6-2.6) mg/dL Total Bilirubin (0.0-1.0) mg/dL Direct Bilirubin (0.0-0.5) mg/dL AST (5-37) U/L ALT (0-40) U/L Alkaline Phosphatase (39-117) U/L Troponin I High Sens < 3.5 (<3.5-35.0) ng/L Total Protein (6.5-8.0) g/dL Albumin (3.5-5.0) g/dL Lipase (8-78) U/L TSH 0.94 (0.32-4.0) uIU/mL Urine Color Urine Appearance Urine pH (5.0-9.0) Ur Specific [place] (1.005-1.025) Urine Protein (Neg-Trace) mg/dL Urine Glucose (UA) (Negative) mg/dL Urine Ketones (Negative) mg/dL Urine Blood (Negative) Urine Nitrite (Negative) Ur Leukocyte Esterase (Negative) Urine RBC (0-2) /HPF Urine WBC (0-5) /HPF Ur Squamous Epith Cells (0-2) /HPF Urine Bacteria (None Seen) Hyaline Casts (0-2) /LPF COVID-19 (SHOAIB) (Negative) COVID-19 Clin Com 12/16/21 Range/Units 20:18 WBC (4.8-10.8) X10*3/uL RBC (4.60-5.80) X10*6/uL Hgb (14.0-18.0) g/dl Hct (42.0-52.0) % MCV (80.0-98.0) fL MCH (27.0-33.0) pg MCHC (31.0-36.0) g/dl RDW (11.0-16.0) % Plt Count (160-400) X10*3/uL MPV (9.4-12.4) fL Immature Gran % (Auto) (0.0-0.4) % Neut % (Auto) (45-73) % Lymph % (Auto) (20-40) % [place] % (Auto) (2-11) % Eos % (Auto) (0-4) % Baso % (Auto) (0-2) % Lymph # (Auto) (1.2-4.9) X10*3/uL [place] # (Auto) (0.1-1.2) X10*3/uL Eos # (Auto) (0.0-0.4) X10*3/uL Baso # (Auto) (0.0-0.2) X10*3/uL Abs Immat Gran (auto) (0.00-0.03) X10*3/uL Absolute Neuts (auto) (2.0-8.3) x10*3/uL Absolute Nucleated RBC (0.0-0.012) X10*3/uL Nucleated RBC % (auto) (0.0-0.2) /100WBC Sodium (135-145) mmol/L Potassium (3.3-5.1) mmol/L Chloride (96-108) mmol/L Carbon Dioxide (22-29) mmol/L Anion Gap (12-20) BUN (9-16) mg/dL Creatinine (0.5-1.4) mg/dL Estim Creat Clear Calc Estimated GFR Random Glucose (60-115) mg/dL Lactic Acid (0.5-2.0) mmol/L Calcium (8.4-10.2) mg/dL Magnesium (1.6-2.6) mg/dL Total Bilirubin (0.0-1.0) mg/dL Direct Bilirubin (0.0-0.5) mg/dL AST (5-37) U/L ALT (0-40) U/L Alkaline Phosphatase (39-117) U/L Troponin I High Sens (<3.5-35.0) ng/L Total Protein (6.5-8.0) g/dL Albumin (3.5-5.0) g/dL Lipase (8-78) U/L TSH (0.32-4.0) uIU/mL Urine Color Yellow Urine Appearance Clear Urine pH 7.0 (5.0-9.0) Ur Specific [place] <= 1.005 (1.005-1.025) Urine Protein Negative (Neg-Trace) mg/dL Urine Glucose (UA) Negative (Negative) mg/dL Urine Ketones Negative (Negative) mg/dL Urine Blood Trace H (Negative) Urine Nitrite Negative (Negative) Ur Leukocyte Esterase Small (1+) H (Negative) Urine RBC 0-2 (0-2) /HPF Urine WBC 0-5 (0-5) /HPF Ur Squamous Epith Cells 0-2 (0-2) /HPF Urine Bacteria None Seen (None Seen) Hyaline Casts 0-2 (0-2) /LPF COVID-19 (SHOAIB) (Negative) COVID-19 Clin Com Imaging Data CT scan - chest: Radiologist's impression: FINDINGS: The thoracic inlet is within normal limits. The axillary regions are unremarkable. There is a pericardial effusion here. The partially visualized upper abdominal structures are grossly unremarkable. Centrally there is no bulky mediastinal adenopathy. Imaging of the lung gupta. Right lung; Mild right upper lung opacity in the apex may be chronic. Small area of atelectasis or infiltrate would need to be considered. Motion limits this exam. There is felt to be bronchial thickening in the lungs. Mild opacities at the right base may be atelectasis or mild infiltrate. Probable chronic change in the anterior lower lung zone. Left lung; Again bronchial thickening is noted here. Mild basilar atelectasis. Scattered areas of groundglass may represent small airways disease. Review of the bone windows does not demonstrate a suspicious finding. Degenerative change in the partially visualized cervical spine is noted. CT/CT chest wo IV con IMPRESSION: Exam is demonstrating a pericardial effusion which is small volume. ? Lung gupta there is bronchial thickening. Some patchy opacities at the right base could represent a small area of atelectasis or infiltrate. Probable atelectasis at the left base. ? Mild pleural change in the right upper lung laterally may be chronic and some probable chronic changes in the right middle lobe anterior. Somewhat nodular. Attention to follow-up ? Some scattered areas of groundglass opacity may represent small airways disease. ? Recommend follow-up scan low-dose noncontrast in 6 months for continued evaluation ? Discharge Plan Discharge Clinical Impression: Bilateral leg weakness, Acute UTI Patient Disposition: Admitted As Inpatient Prescriptions: No Action bethanechol chloride 50 mg tablet 50 mg PO BID 90 Days Qty: 180 1RF terazosin 5 mg capsule 5 mg PO BEDTIME 30 Days Qty: 90 3RF clonazepam 0.5 mg tablet 0.5 mg PO DAILY MDD 3 tabs PRN (Reason: abnormal behavior) Qty: 60 0RF clonazepam 0.5 mg tablet See Rx Instructions .ROUTE .COMPLEX Qty: 60 5RF Rx Instructions: 1 tab PO at bedtime and 1/2 tab as needed for behavior issues upto 3 times a day; administer 30 minutes before bedtime risperidone 1 mg tablet 1 mg PO BID ammonium lactate 12 % cream 1 appl topical BID multivitamin Tablet 1 tab PO DAILY cholestyramine (with sugar) 4 gram powder in packet 1 ea PO DAILY clindamycin phosphate 1 % solution 1 appl topical DAILY levothyroxine 88 mcg tablet 88 mcg PO DAILY ketoconazole 2 % cream 1 appl topical DAILY donepezil [Aricept] 10 mg tablet 10 mg PO BEDTIME Qty: 30 6RF memantine [Namenda] 10 mg tablet 10 mg PO BID Qty: 60 6RF benztropine 0.5 mg tablet 0.5 mg PO DAILY chlorhexidine gluconate 4 % packet topical Debrox 6.5 % drops 5 drp otic (ears) Q12H fluticasone propionate [Flonase Allergy Relief] 50 mcg/actuation spray,suspension 1 spray intranasal DAILY Rx Instructions: administer into each nostril guaifenesin 100 mg/5 mL liquid 200 mg PO Q4H PRN acetaminophen [Tylenol] 325 mg tablet 650 mg PO QID PRN donepezil 10 mg tablet 10 mg PO DAILY Qty: 30 6RF paroxetine HCl 40 mg tablet 40 mg PO DAILY
--- OUTSIDE RECORDS SUMMARY | 2021-12-16 16:15 | XMS_ITS | Continuity of Care Document ---
:1975 Author Organization [facility] Address [address] [place] [id number]- Care Team Providers Name Role Phone Kd Mi DO Primary Care Phys[place] [facility] [place] - 08/12/[address] [id number]- [facility] Attending Physician: Kd Mi DO Admitting Physician: Kd Mi DO Referring Physician: Kd Mi DO Allergies, Adverse Reactions, Alerts Substance Reaction Severity Status Lactose Active Immunizations Given and Recorded Vaccine Date Status Refusal Reason tetanus/diphtheria/pertussis, acel(Tdap) 02/19/14 Given Medications Ammonium Lactate 12% Topically, 2 times a day, 0 Refills, Maintenance, 07/22/16 11:45:20 Start Date: 07/22/16 Status: OrderedBenztropine 0 Refills, Maintenance, 07/22/16 11:49:36 Start Date: 07/22/16 Status: Orderedchlorhexidine topical 0.12% liquid 15 mL = 0.018 Gm, By Mouth, 2 times a day, # 480 mL, 0 Refills, Maintenance, 07/22/16 11:48:41, Liquid Start Date: 07/22/16 Status: Orderedcholestyramine 4 gm/9 gm oral powder for reconstitution See Instructions, MIX 1 PACKET IN A 6 OUNCE GLASS OF WATER STIR TO UNIFORM CONSISTENCY AND, # 28 each, 0 Refills, 07/10/19 10:46:00 EDT, [id number] Start Date: 07/10/19 Status: OrderedDaily Marck oral tablet See Instructions, TAKE 1 TABLET BY MOUTH EVERY MORNING, # 28 tablet, 7 Refills, Soft Stop, 06/01/19 15:34:00 EDT, [facility]-[id number], TAKE 1 TABLET BY MOUTH EVERY MORNING Start Date: 06/01/19 Status: OrderedDebrox 5 drops, 3 times a day, 0 Refills, Maintenance, 07/22/16 11:47:09 Start Date: 07/22/16 Status: OrderedFlonase 50 mcg/inh nasal spray 1 sprays, Daily, 0 Refills, Maintenance, 07/22/16 11:45:51 Start Date: 07/22/16 Status: Orderedlevothyroxine 0.088 mg oral tablet 1 tablet = 88 mcg, By Mouth, Daily, # 90 tablet, 0 Refills, Soft Stop, 07/10/19 16:23:00 EDT, [facility]-[id number] Start Date: 07/10/19 Status: OrderedMylanta Liquid 10 mL, By Mouth, 3 times a day after meals and bedtime, 0 Refills, Maintenance, 07/22/16 11:46:50 Start Date: 07/22/16 Status: OrderedPaxil 20 mg oral tablet 20 mg, 1, tablet, By Mouth, Daily, Refills 0, Maintenance, 07/22/16 11:47:56 Start Date: 07/22/16 Status: OrderedRisperidone = 1 mg, By Mouth, 2 times a day, 0 Refills, Maintenance, 07/22/16 11:47:40 Start Date: 07/22/16 Status: OrderedRobitussin DM Liquid 5 mL, By Mouth, Every 4 hours, 0 Refills, Maintenance, 07/22/16 11:46:19 Start Date: 07/22/16 Status: OrderedTylenol Caplet = 650 mg, By Mouth, Every 4 hours, 0 Refills, Maintenance, 07/22/16 11:46:37 Start Date: 07/22/16 Status: Ordered Problem List Condition Effective Dates Status Health Status Informant Down syndrome(Confirmed) Active Anxiety disorder(Confirmed) Active Asthma(Confirmed) Active Esophageal reflux(Confirmed) Active Hyperlipidemia(Confirmed) Active Hypothyroidism(Confirmed) Active Dermatitis(Confirmed) Active Macrocytosis(Confirmed) Active NAFLD (nonalcoholic fatty liver Active disease)(Confirmed) Obesity(Confirmed) Active Obstructive sleep apnea(Confirmed)1, 2 Active Pericardial effusion(Confirmed)3 Active Prediabetes(Confirmed) Active [id number]. [place] Social History Social History Type Response Smoking Status Never (less than 100 in life time) entered on: 02/01/19 Sex
--- OUTSIDE RECORDS SUMMARY | 2021-12-16 16:15 | XMS_ITS | Continuity of Care Document ---
:1975 Author Organization [facility] Address [address] [place] [address]- Care Team Providers Name Role Phone Kd Mi DO Primary Care Physician Encounter [facility] [place] Date(s): 09/23/21 - 10/23/[address] [address] Attending Physician: Jorge Felix Admitting Physician: Jorge Felix Referring Physician: AdmtrJorge Allergies, Adverse Reactions, Alerts Substance Reaction Severity Status Lactose Active Immunizations Given and Recorded Vaccine Date Status Refusal Reason tetanus/diphtheria/pertussis, acel(Tdap) 02/19/14 Given Medications acetaminophen 500 mg oral tablet 1 tablet = 500 mg, By Mouth, Every 6 hours, PRN as needed for pain, blister pack, # 30 tablet, 1 Refills, Maintenance, 03/26/21 12:04:00 EST, Tablet, [place] [id number], Partial fill upon patient request if the prescription is for a sc... Start Date: 03/26/21 Status: Orderedaloe aloe, See Instructions, # 1 each, Refills 0, Tot. Refills 0, Maintenance, Apply sparingly to affected areas twice a day 1 bottle, 08/27/20 19:16:00 EDT, Supply, 157, cm, 06/27/20 11:24:00 EDT, Height Start Date: 08/27/20 Status: OrderedAmmonium Lactate 12% Topically, 2 times a day, 0 Refills, Maintenance, 07/22/16 11:45:20 Start Date: 07/22/16 Status: OrderedBenztropine 0 Refills, Maintenance, 07/22/16 11:49:36 Start Date: 07/22/16 Status: Orderedcholestyramine 4 gm/9 gm oral powder for reconstitution See Instructions, MIX 1 PACKET IN A 6 OUNCE GLASS OF WATER STIR TO UNIFORM CONSISTENCY AND, # 28 each, 0 Refills, 07/10/21 18:07:00 EDT, [facility]60, 157, cm, 05/12/21 14:23:00 EST, Height Start Date: 07/10/21 Status: Orderedclotrimazole 1% topical cream 1 application, Topically, 2 times a day, apply sparingly, # 30 Gm, 0 Refills, Maintenance, 01/19/20 16:05:00 EST, Cream, [facility]50, Partial fill upon patient request, 1 application Topically 2 times a day,Instr:apply sparingly Start Date: 01/19/20 Status: OrderedDaily Marck oral tablet See Instructions, TAKE 1 TABLET BY MOUTH EVERY MORNING AT 8AM, # 28 tablet, 5 Refills, [facility]17, 28, TAKE 1 TABLET BY MOUTH EVERY MORNING AT 8AM, 157, cm, 05/12/21 14:23:00 EST, Height Start Date: 06/10/21 Status: OrderedDebrox 5 drops, 3 times a day, 0 Refills, Maintenance, 07/22/16 11:47:09 Start Date: 07/22/16 Status: Orderedeconazole 1% topical cream 1 application, Topically, 2 times a day, use sparingly for 7 days, # 15 Gm, 0 Refills, Maintenance, 06/05/21 7:10:00 EDT, Cream, [facility] [address], Partial fill upon patient request ifthe prescription is for a schedule II opioid drug... Start Date: 06/05/21 Status: OrderedFlonase 50 mcg/inh nasal spray 1 sprays, Daily, 0 Refills, Maintenance, 07/22/16 11:45:51 Start Date: 07/22/16 Status: Orderedlevothyroxine 0.088 mg oral tablet 1 tablet, By Mouth, Daily in AM, AT 8AM., # 90 tablet, 3 Refills, 10/13/21 10:13:00 EDT, [facility]10018, 157, cm, 10/13/21 9:51:00 EDT, Height Start Date: 10/13/21 Status: Orderedloratadine 10 mg oral tablet 1, tablet, By Mouth, Daily in AM, for 90 days, AT 8AM., # 90 tablet, Refills 3, Tot. Refills 3, Physician Stop 10/08/22 10:14:00 EDT, 10/13/21 10:14:00 EDT, Route to Pharmacy Electronically, [facility]-68719, 157, cm, 10/13/21 9:51:0... Start Date: 10/13/21 Stop Date: 10/08/22 Status: OrderedMylanta Liquid 10 mL, By Mouth, 3 times a day after meals and bedtime, 0 Refills, Maintenance, 07/22/16 11:46:50 Start Date: 07/22/16 Status: OrderedPataday 0.2% ophthalmic solution 1 drops, Eye, Right, Daily, # 2.5 mL, 0 Refills, Maintenance, 02/20/20 16:16:00 EST, Solution, [facility], Partial fill upon patient request if the prescription is for a schedule II opioid drug., 1 drops Eye, Right Daily Start Date: 02/20/20 Status: OrderedPaxil 20 mg oral tablet 20 mg, 1, tablet, By Mouth, Daily, Refills 0, Maintenance, 07/22/16 11:47:56 Start Date: 07/22/16 Status: OrderedReadi-Cat 2 oral suspension See Instructions, 2 bottles pt to drink one bottle the night before procedure and one bottle 90 minutes prior to procedure, # 2 each, 0 Refills, Maintenance, 11/06/19 14:11:00 EDT, [facility][id number], 2 bottles; pt to drink one bottle the ni... Start Date: 11/06/19 Status: OrderedRisperidone = 1 mg, By Mouth, 2 times a day, 0 Refills, Maintenance, 07/22/16 11:47:40 Start Date: 07/22/16 Status: OrderedRobitussin DM Liquid 5 mL, By Mouth, Every 4 hours, 0 Refills, Maintenance, 07/22/16 11:46:19 Start Date: 07/22/16 Status: OrderedTylenol Caplet = 650 mg, By Mouth, Every 4 hours, 0 Refills, Maintenance, 07/22/16 11:46:37 Start Date: 07/22/16 Status: OrderedTylenol Extra Strength 500 mg oral tablet 1 tablet = 500 mg, By Mouth, Every 8 hours, PRN Pain , Mild, # 60 tablet, 0 Refills, Maintenance, 01/09/21 13:59:00 EDT, Tablet, [facility]-26749, Partial fill upon patient request ifthe prescription is for a schedule II opioid drug... Start Date: 01/09/21 Status: Ordered Problem List Condition Effective Dates Status Health Status Informant Allergy(Confirmed) Active Allergic conjunctivitis of right eye Active and rhinitis(Confirmed) Down syndrome(Confirmed) Active Anxiety disorder(Confirmed) Active Asthma(Confirmed) Active Dementia(Confirmed) Active Dysphagia(Confirmed) Active Esophageal reflux(Confirmed) Active H/O urinary retention(Confirmed) Active Hyperlipidemia(Confirmed) Active Hypothyroidism(Confirmed) Active Cerumen impaction(Confirmed) Active Dermatitis(Confirmed) Active Macrocytosis(Confirmed) Active NAFLD (nonalcoholic fatty liver Active disease)(Confirmed) Obese class I(Confirmed) Active Obesity(Confirmed) Active Obstructive sleep apnea(Confirmed)1, 2 Active Pericardial effusion(Confirmed)3 Active Prediabetes(Confirmed) Active Tinea corporis(Confirmed) Active [id number][employer] Social History Social History Type Response Smoking Status Never (less than 100 in life time) entered on: 02/01/19 Sex
--- OUTSIDE RECORDS SUMMARY | 2021-12-16 16:15 | XMS_ITS | Continuity of Care Document ---
:1975 Author Organization [facility] Address [address] [place] [address]- Care Team Providers Name Role Phone Kd Mi DO Primary Care Physician Encounter [facility] [place] Date(s): 01/10/21 - 02/09/21 [facility] [address] [place], [place] [address] Allergies, Adverse Reactions, Alerts Substance Reaction Severity Status Lactose Active Immunizations Given and Recorded Vaccine Date Status Refusal Reason tetanus/diphtheria/pertussis, acel(Tdap) 02/19/14 Given Medications aloe aloe, See Instructions, # 1 each, Refills [...] CONSISTENCY AND, # 28 each, 0 Refills, 03/19/20 8:15:00 [facility]05539 Start Date: 03/19/20 Status: OrderedClaritin 10 mg oral tablet 10 mg, 1, tablet, By Mouth, Daily, # 90 tablet, Refills 0, Tot. Refills 0, Maintenance, 01/09/21 13:58:00 EDT, Route to Pharmacy Electronically, [facility]89, Partial fill upon patient request if the prescription is for a schedul... Start Date: 01/09/21 Status: Orderedclotrimazole 1% topical cream 1 application, Topically, 2 times a day, apply sparingly, # 30 Gm, 0 Refills, Maintenance, 01/19/20 16:05:00 EST, Cream, [facility]659, Partial fill upon patient request, 1 application Topically 2 times a day,Instr:apply sparingly Start Date: 01/19/20 Status: OrderedDaily Marck oral tablet 1 tablet, By Mouth, Daily, # 90 tablet, 0 Refills, Soft Stop, 04/17/20 15:24:00 EST, [facility]18, 1 tablet By Mouth Daily, 157, cm, 03/29/20 10:33:00 EST, Height Start Date: 04/17/20 Status: OrderedDebrox 5 drops, 3 times a day, 0 Refills, Maintenance, 07/22/16 11:47:09 Start Date: 07/22/16 Status: OrderedFlonase 50 mcg/inh nasal spray 1 sprays, Daily, 0 Refills, Maintenance, 07/22/16 11:45:51 Start Date: 07/22/16 Status: Orderedlevothyroxine 0.088 mg oral tablet 1 tablet, By Mouth, Daily in AM, AT 8AM., # 28 tablet, 5 Refills, [facility]05611, 157, cm, 06/27/20 11:24:00 EDT, Height Start Date: 12/24/20 Status: OrderedMylanta Liquid 10 mL, By Mouth, 3 times a day after meals and bedtime, 0 Refills, Maintenance, 07/22/16 11:46:50 Start Date: 07/22/16 Status: OrderedPataday 0.2% ophthalmic solution 1 drops, Eye, Right, Daily, # 2.5 mL, 0 Refills, Maintenance, 02/20/20 16:16:00 EST, Solution, [facility]-66060, Partial fill upon patient request if the prescription is for a schedule II opioid drug., 1 drops Eye, Right Daily Start Date: 12/15/20 Status: OrderedPaxil 20 mg oral tablet 20 mg, 1, tablet, By Mouth, Daily, Refills 0, Maintenance, 07/22/16 11:47:56 Start Date: 07/22/16 Status: OrderedReadi-Cat 2 oral suspension See Instructions, 2 bottles pt to drink one bottle the night before procedure and one bottle 90 minutes prior to procedure, # 2 each, 0 Refills, Maintenance, 11/06/19 14:11:00 EDT, [facility][id number], 2 bottles; pt to drink one bottle [...] 0 Refills, Maintenance, 01/09/21 13:59:00 EDT, Tablet, [facility]-49870, Partial fill upon patient request ifthe prescription is for a schedule II opioid drug... Start Date: 01/09/21 Status: Ordered Problem List Condition Effective Dates Status Health Status Informant Allergy(Confirmed) Active Allergic conjunctivitis of right eye Active and rhinitis(Confirmed) Down syndrome(Confirmed) Active Anxiety disorder(Confirmed) Active Asthma(Confirmed) Active Dementia(Confirmed) Active Esophageal reflux(Confirmed) Active H/O urinary retention(Confirmed) Active Hyperlipidemia(Confirmed) Active Hypothyroidism(Confirmed) Active Cerumen impaction(Confirmed) Active Dermatitis(Confirmed) Active Macrocytosis(Confirmed) Active NAFLD (nonalcoholic fatty liver Active disease)(Confirmed) Obesity(Confirmed) Active Obstructive sleep apnea(Confirmed)1, 2 Active Pericardial effusion(Confirmed)3 Active Prediabetes(Confirmed) Active [id number][employer] Social History Social History Type Response Smoking Status Never (less than 100 in life time) entered on: 02/01/19 Sex
--- OUTSIDE RECORDS SUMMARY | 2021-12-16 16:15 | XMS_ITS | Continuity of Care Document ---
:1975 Author Organization [facility] Address [address] [place] [address]- Care Team Providers Name Role Phone Kd Mi DO Primary Care Physician Encounter [facility] [place] Date(s): 02/20/20 - 03/21/20 [facility] [address] [place] [address]- Attending Physician: Jorge Felix Admitting Physician: AdmtrJorge Referring Physician: Admtr, ArJarrett Allergies, Adverse Reactions, Alerts Substance Reaction Severity [...] # 28 each, 0 Refills, 03/19/20 8:15:00 EST, [facility]-36535 Start Date: 03/19/20 Status: OrderedClaritin 10 mg oral tablet 10 mg, 1, tablet, By Mouth, Daily, # 7 tablet, Refills 0, Tot. Refills 0, Maintenance, 02/20/20 16:18:00 EST, Route to Pharmacy Electronically, [facility]-04680, Partial fill upon patient request if the prescription is for a schedule... Start Date: 02/20/20 Stop Date: 02/27/20 Status: Orderedclotrimazole 1% topical cream 1 application, Topically, 2 times a day, apply sparingly, # 30 Gm, 0 Refills, Maintenance, 01/19/20 16:05:00 EST, Cream, [facility]55, Partial fill upon patient request, 1 application Topically 2 times a day,Instr:apply sparingly Start Date: 01/19/20 Status: OrderedDaily Marck oral tablet See Instructions, TAKE 1 TABLET BY MOUTH EVERY MORNING, # 28 tablet, 7 Refills, Soft Stop, 06/01/19 15:34:00 EDT, [facility]874, TAKE 1 TABLET BY MOUTH EVERY MORNING Start Date: 06/01/19 Status: OrderedDebrox 5 drops, 3 times a day, 0 Refills, Maintenance, 07/22/16 11:47:09 Start Date: 07/22/16 Status: OrderedFlonase 50 mcg/inh nasal spray 1 sprays, Daily, 0 Refills, Maintenance, 07/22/16 11:45:51 Start Date: 07/22/16 Status: Orderedlevothyroxine 0.088 mg oral tablet 1 tablet = 88 mcg, By Mouth, Daily, # 90 tablet, 1 Refills, Soft Stop, 02/07/20 9:36:00 EST, [facility] Start Date: 02/07/20 Status: OrderedMylanta Liquid 10 mL, By Mouth, 3 times a day after meals and bedtime, 0 Refills, Maintenance, 07/22/16 11:46:50 Start Date: 07/22/16 Status: OrderedPataday 0.2% ophthalmic solution 1 drops, Eye, Right, Daily, # 2.5 mL, 0 Refills, Maintenance, 02/20/20 16:16:00 EST, Solution, [facility]-86904, Partial fill upon patient request if the [...] each, 0 Refills, Maintenance, 11/06/19 14:11:00 EDT, [facility]#[id number], 2 bottles; pt to drink one bottle [...] Condition Effective Dates Status Health Status Informant Allergic conjunctivitis of right eye Active and rhinitis(Confirmed) Down syndrome(Confirmed) Active Anxiety disorder(Confirmed) Active Asthma(Confirmed) Active Esophageal reflux(Confirmed) Active Hyperlipidemia(Confirmed) Active Hypothyroidism(Confirmed) Active Dermatitis(Confirmed) Active Macrocytosis(Confirmed) Active NAFLD (nonalcoholic fatty liver Active disease)(Confirmed) Obesity(Confirmed) Active Obstructive sleep apnea(Confirmed)1, 2 Active Pericardial effusion(Confirmed)3 Active Prediabetes(Confirmed) Active [id number][employer] Social History Social History Type Response Smoking Status Never (less than 100 in life time) entered on: 02/01/19 Sex
--- OUTSIDE RECORDS SUMMARY | 2021-12-16 16:15 | XMS_ITS | Continuity of Care Document ---
:1975 Author Organization [facility] Address [address] [place] [address]- Care Team Providers Name Role Phone Mi Kd MARIE Primary Care Physician [place] [facility] [place] Date(s): 03/11/20 - 04/10/20 [facility] [address] [place] [address]- Allergies, Adverse Reactions, Alerts Substance Reaction Severity [...] 28 each, 0 Refills, 03/19/20 8:15:00 EST, [facility] Start Date: 03/19/20 Status: OrderedClaritin 10 mg oral tablet 10 mg, 1, tablet, By Mouth, Daily, # 7 tablet, Refills 0, Tot. Refills 0, Maintenance, 02/20/20 16:18:00 EST, Route to Pharmacy Electronically, [facility]-76024, Partial fill upon patient request if the prescription is for a schedule... Start Date: 02/20/20 Stop Date: 02/27/20 Status: Orderedclotrimazole 1% topical cream 1 application, Topically, 2 times a day, apply sparingly, # 30 Gm, 0 Refills, Maintenance, 01/19/20 16:05:00 EST, Cream, [facility]-83583, Partial fill upon patient request, 1 application Topically 2 times a day,Instr:apply sparingly Start Date: 01/19/20 Status: OrderedDaily Marck oral tablet See Instructions, TAKE 1 TABLET BY MOUTH EVERY MORNING, # 28 tablet, 7 Refills, Soft Stop, 06/01/19 15:34:00 EDT, [facility]07601, TAKE 1 TABLET BY MOUTH EVERY MORNING [...] 1 Refills, Soft Stop, 02/07/20 9:36:00 EST, [facility]215 Start Date: 02/07/20 Status: OrderedMylanta Liquid 10 mL, By Mouth, 3 times a day after meals and bedtime, 0 Refills, Maintenance, 07/22/16 11:46:50 Start Date: 07/22/16 Status: OrderedPataday 0.2% ophthalmic solution 1 drops, Eye, Right, Daily, # 2.5 mL, 0 Refills, Maintenance, 02/20/20 16:16:00 EST, Solution, [facility]-66044, Partial fill upon patient request if the [...] each, 0 Refills, Maintenance, 11/06/19 14:11:00 EDT, [facility][id number], 2 bottles; pt to drink one bottle [...] 2 Active Pericardial effusion(Confirmed)3 Active Prediabetes(Confirmed) Active [id number][employer] Social History Social History Type Response Smoking Status Never (less than 100 in life time) entered on: 02/01/19 Sex
--- OUTSIDE RECORDS SUMMARY | 2021-12-16 16:15 | XMS_ITS | Continuity of Care Document ---
:1975 Author Organization [facility] Address [address] [place] [address]- Care Team Providers Name Role Phone Kd Mi DO Primary Care Physician [place] [facility] [place] Date(s): 03/18/21 - 04/17/[address] [address] Attending Physician: Jorge Felix Admitting Physician: AdmJorge valderrama Referring Physician: AdmtrJorge Allergies, Adverse Reactions, Alerts Substance Reaction Severity Status Lactose Active Immunizations Given and Recorded Vaccine Date Status Refusal Reason tetanus/diphtheria/pertussis, acel(Tdap) 02/19/14 Given Medications acetaminophen 500 mg oral tablet 1 tablet = 500 mg, By Mouth, Every 6 hours, PRN as needed for pain, blister pack, # 30 tablet, 1 Refills, Maintenance, 03/26/21 12:04:00 EST, Tablet, [facility]45, Partial fill upon patient request if the [...] 28 each, 0 Refills, 03/19/20 8:15:00 EST, [facility]87 Start Date: 03/19/20 Status: OrderedClaritin 10 mg oral tablet 10 mg, 1, tablet, By Mouth, Daily, # 90 tablet, Refills 1, Tot. Refills 1, Maintenance, 04/16/21 10:55:00 EST, Route to Pharmacy Electronically, [place] [address], Partial fill upon patient request if the prescription is for a schedul... Start Date: 04/16/21 Status: Orderedclotrimazole 1% topical cream 1 application, Topically, 2 times a day, apply sparingly, # 30 Gm, 0 Refills, Maintenance, 01/19/20 16:05:00 EST, Cream, [facility]28, Partial fill upon patient request, 1 application Topically 2 times a day,Instr:apply sparingly Start Date: 01/19/20 Status: OrderedDaily Marck oral tablet 1 tablet, By Mouth, Daily, # 90 tablet, 0 Refills, Soft Stop, 04/17/20 15:24:00 EST, [facility]75, 1 tablet By Mouth Daily, 157, cm, [...] AT 8AM., # 28 tablet, 5 Refills, [facility]10, 157, cm, 06/27/20 11:24:00 EDT, Height Start Date: 12/24/20 Status: OrderedMylanta Liquid 10 mL, By Mouth, 3 times a day after meals and bedtime, 0 Refills, Maintenance, 07/22/16 11:46:50 Start Date: 07/22/16 Status: OrderedPataday 0.2% ophthalmic solution 1 drops, Eye, Right, Daily, # 2.5 mL, 0 Refills, Maintenance, 02/20/20 16:16:00 EST, Solution, [facility]-44752, Partial fill upon patient request if the [...] each, 0 Refills, Maintenance, 11/06/19 14:11:00 EDT, [facility]#[id number], 2 bottles; pt to drink one bottle [...] 0 Refills, Maintenance, 01/09/21 13:59:00 EDT, Tablet, [facility]-29346, Partial fill upon patient request ifthe prescription [...] 2 Active Pericardial effusion(Confirmed)3 Active Prediabetes(Confirmed) Active [id number][employer] Social History Social History Type Response Smoking Status Never (less than 100 in life time) entered on: 02/01/19 Sex
--- OUTSIDE RECORDS SUMMARY | 2021-12-16 16:16 | XMS_ITS | Continuity of Care Document ---
:1975 Author Organization [facility] Address [address] [place] [address]- Care Team Providers Name Role Phone Kd Mi DO Primary Care Physician [place] [facility] [place] - 04/17/[address] [address] Attending Physician: Kd Mi DO Admitting Physician: [...] 1 Refills, Maintenance, 03/26/21 12:04:00 EST, Tablet, [facility]79, Partial fill upon patient request if the [...] 28 each, 0 Refills, 03/19/20 8:15:00 EST, [facility]54031 Start Date: 03/19/20 Status: OrderedClaritin 10 mg oral tablet 10 mg, 1, tablet, By Mouth, Daily, # 90 tablet, Refills 1, Tot. Refills 1, Maintenance, 04/16/21 10:55:00 EST, Route to Pharmacy Electronically, [place] [address], Partial fill upon patient request if the prescription is for a schedul... Start Date: 04/16/21 Status: Orderedclotrimazole 1% topical cream 1 application, Topically, 2 times a day, apply sparingly, # 30 Gm, 0 Refills, Maintenance, 01/19/20 16:05:00 EST, Cream, [facility]99, Partial fill upon patient request, 1 application Topically 2 times a day,Instr:apply sparingly Start Date: 01/19/20 Status: OrderedDaily Marck oral tablet 1 tablet, By Mouth, Daily, # 90 tablet, 0 Refills, Soft Stop, 04/17/20 15:24:00 EST, [place] [id number], 1 tablet By Mouth Daily, 157, cm, [...] AT 8AM., # 28 tablet, 5 Refills, [facility]21, 157, cm, 06/27/20 11:24:00 EDT, Height Start Date: 12/24/20 Status: OrderedMylanta Liquid 10 mL, By Mouth, 3 times a day after meals and bedtime, 0 Refills, Maintenance, 07/22/16 11:46:50 Start Date: 07/22/16 Status: OrderedPataday 0.2% ophthalmic solution 1 drops, Eye, Right, Daily, # 2.5 mL, 0 Refills, Maintenance, 02/20/20 16:16:00 EST, Solution, [facility]-26375, Partial fill upon patient request if the [...] each, 0 Refills, Maintenance, 11/06/19 14:11:00 EDT, [facility]#[id number], 2 bottles; pt to drink one bottle [...] 0 Refills, Maintenance, 01/09/21 13:59:00 EDT, Tablet, [facility]-[address]00, Partial fill upon patient request ifthe prescription [...] 2 Active Pericardial effusion(Confirmed)3 Active Prediabetes(Confirmed) Active [id number][employer] Social History Social History Type Response Smoking Status Never (less than 100 in life time) entered on: 02/01/19 Sex
--- OUTSIDE RECORDS SUMMARY | 2021-12-16 16:16 | XMS_ITS | Continuity of Care Document ---
:1975 Author Organization [facility] Address [address] [place] [address]- Care Team Providers Name Role Phone Kd Mi DO Primary Care Physician [place] [facility] [place]20 [facility] [address] [place] [address]- [facility] Attending Physician: Jorge Felix Admitting Physician: AdmJorge [...] CONSISTENCY AND, # 28 each, 0 Refills, 12/26/19 9:14:00 EDT, [facility]-31320 Start Date: 12/26/19 Status: OrderedDaily Marck oral tablet See Instructions, TAKE 1 TABLET BY MOUTH EVERY MORNING, # 28 tablet, 7 Refills, Soft Stop, 06/01/19 15:34:00 EDT, [facility]-54587, TAKE 1 TABLET BY MOUTH EVERY MORNING [...] # 90 tablet, 0 Refills, Soft Stop, 10/11/19 9:00:00 EDT, [facility]-69879 Start Date: 10/11/19 Status: OrderedMylanta Liquid 10 mL, By Mouth, [...] each, 0 Refills, Maintenance, 11/06/19 14:11:00 EDT, [facility]#[id number], 2 bottles; pt to drink one bottle [...] 2 Active Pericardial effusion(Confirmed)3 Active Prediabetes(Confirmed) Active [id number][employer] Social History Social History Type Response Smoking Status Never (less than 100 in life time) entered on: 02/01/19 Sex
--- OUTSIDE RECORDS SUMMARY | 2021-12-16 16:16 | XMS_ITS | Continuity of Care Document ---
:1975 Author Organization [facility] Address [address] [place] [address]- Care Team Providers Name Role Phone Kd Mi DO Primary Care Physician [place] [facility] [place] [facility] [address] [place] [id number] Attending Physician: Jorge Feilx Admitting Physician: Jorge Felix Referring Physician: AdmtrJorge [...] 28 each, 0 Refills, 03/19/20 8:15:00 EST, [facility]-[id number] Start Date: 03/19/20 Status: OrderedClaritin 10 mg oral tablet 10 mg, 1, tablet, By Mouth, Daily, # 7 tablet, Refills 0, Tot. Refills 0, Maintenance, 02/20/20 16:18:00 EST, Route to Pharmacy Electronically, [facility]-[id number], Partial fill upon patient request if the prescription is for a schedule... Start Date: 02/20/20 Stop Date: 02/27/20 Status: Orderedclotrimazole 1% topical cream 1 application, Topically, 2 times a day, apply sparingly, # 30 Gm, 0 Refills, Maintenance, 01/19/20 16:05:00 EST, Cream, [facility]-[id number], Partial fill upon patient request, 1 application Topically 2 times a day,Instr:apply sparingly Start Date: 01/19/20 Status: OrderedDaily Marck oral tablet 1 tablet, By Mouth, Daily, # 90 tablet, 0 Refills, Soft Stop, 04/17/20 15:24:00 EST, [id number], 1 tablet By Mouth Daily, 157, cm, [...] 1 Refills, Soft Stop, 02/07/20 9:36:00 EST, [facility] Start Date: 02/07/20 Status: OrderedMylanta Liquid 10 mL, By Mouth, 3 times a day after meals and bedtime, 0 Refills, Maintenance, 07/22/16 11:46:50 Start Date: 07/22/16 Status: OrderedPataday 0.2% ophthalmic solution 1 drops, Eye, Right, Daily, # 2.5 mL, 0 Refills, Maintenance, 02/20/20 16:16:00 EST, Solution, [facility]-[id number], Partial fill upon patient request if the [...] each, 0 Refills, Maintenance, 11/06/19 14:11:00 EDT, [facility]#[id number], 2 bottles; pt to drink one bottle [...] 2 Active Pericardial effusion(Confirmed)3 Active Prediabetes(Confirmed) Active [id number]. Dell Social History Social History Type Response Smoking Status Never (less than 100 in life time) entered on: 02/01/19 Sex
--- OUTSIDE RECORDS SUMMARY | 2021-12-16 16:16 | XMS_ITS | Continuity of Care Document ---
:1975 Author Organization [facility] Address [address] [place] [address]- Care Team Providers Name Role Phone Kd Mi DO Primary Care Physician [place] [facility] [place]20 [facility] [address] [place] [address]- Encounter Diagnosis Allergic conjunctivitis of right eye and rhinitis (Discharge Diagnosis) - 02/20/20 Attending Physician: Anupama ROSA, Stacey Allergies, Adverse Reactions, Alerts Substance Reaction Severity [...] CONSISTENCY AND, # 28 each, 0 Refills, 02/20/20 8:07:00 EST, [facility] [place], [facility]-[id number] Start Date: 02/20/20 Status: OrderedClaritin 10 mg oral tablet 10 mg, 1, tablet, By Mouth, Daily, # 7 tablet, Refills 0, Tot. Refills 0, Maintenance, 02/20/20 16:18:00 EST, Route to Pharmacy Electronically, [facility], [place], [facility]-[id number], Partial fill upon patient request if the prescription is for a schedule... Start Date: 02/20/20 Stop Date: 02/27/20 Status: Orderedclotrimazole 1% topical cream 1 application, Topically, 2 times a day, apply sparingly, # 30 Gm, 0 Refills, Maintenance, 01/19/20 16:05:00 EST, Cream, [facility], Partial fill upon patient request, 1 application Topically 2 times a day,Instr:apply sparingly Start Date: 01/19/20 Status: OrderedDaily Marck oral tablet See Instructions, TAKE 1 TABLET BY MOUTH EVERY MORNING, # 28 tablet, 7 Refills, Soft Stop, 06/01/19 15:34:00 EDT, [facility], TAKE 1 TABLET BY MOUTH EVERY MORNING [...] 1 Refills, Soft Stop, 02/07/20 9:36:00 EST, [id number] Start Date: 02/07/20 Status: OrderedMylanta Liquid 10 mL, By Mouth, 3 times a day after meals and bedtime, 0 Refills, Maintenance, 07/22/16 11:46:50 Start Date: 07/22/16 Status: OrderedPataday 0.2% ophthalmic solution 1 drops, Eye, Right, Daily, # 2.5 mL, 0 Refills, Maintenance, 02/20/20 16:16:00 EST, Solution, [facility] [place]-[id number], Partial fill upon patient request if the [...] each, 0 Refills, Maintenance, 11/06/19 14:11:00 EDT, [facility]#[id number], 2 bottles; pt to drink one bottle [...] 2 Active Pericardial effusion(Confirmed)3 Active Prediabetes(Confirmed) Active [id number]. Dell Diagnosis Diagnosis Type Effective Dates Health Clinical Infor mant Status Service Allergic Discharge 02/20/20 conjunctivitis of Diagnosis right eye and rhinitis Social History Social History Type Response Smoking Status Never (less than 100 in life time) entered on: 02/01/19 Sex
[2021-12-16 17:04] LABS: MANUAL DIFF FLAG NO
[2021-12-16 17:16] LABS: Basophils Absolute Auto 0.1 X10*3/uL (0.0-0.2); Basophils Percent Auto 1.6 % (0-2); Eosinophils Percent Auto 0.7 % (0-4); Hematocrit 43.1 % (42.0-52.0); Hemoglobin 14.6 g/dl (14.0-18.0); Imm Gran Abs Auto 0.05 X10*3/uL (0.00-0.03); Imm Gran Pct Auto 0.9 % (0.0-0.4); Lymphocytes Absolute Auto 1.4 X10*3/uL (1.2-4.9); Lymphocytes Percent Auto 25.2 % (20-40); Mean Corpuscular HGB Conc 33.9 g/dl (31.0-36.0); Mean Corpuscular Volume 94.5 fL (80.0-98.0); Mean Platelet Volume 9.8 fL (9.4-12.4); Monocytes Absolute Auto 0.4 X10*3/uL (0.1-1.2); Monocytes Percent Auto 6.7 % (2-11); Neutrophils Absolute Auto 3.7 x10*3/uL (2.0-8.3); Neutrophils Percent Auto 64.9 % (45-73); Platelet Count 187 X10*3/uL (160-400); Red Blood Count 4.56 X10*6/uL (4.60-5.80); Red Cell Distribution Width 12.6 % (11.0-16.0); White Blood Count 5.6 X10*3/uL (4.8-10.8)
[2021-12-16 17:17] LABS: Lactic Acid 0.8 mmol/L (0.5-2.0)
[2021-12-16 17:28] LABS: Alanine Aminotransferase 22 U/L (0-40); Albumin Level 4.1 g/dL (3.5-5.0); Alkaline Phosphatase 68 U/L (39-117); Anion Gap 14 (12-20); Aspartate Amino Transferase 27 U/L (5-37); Bilirubin Direct < 0.2 mg/dL (0.0-0.5); Bilirubin Total 0.4 mg/dL (0.0-1.0); Blood Urea Nitrogen 10 mg/dL (9-16); Carbon Dioxide 29 mmol/L (22-29); Chloride 103 mmol/L (96-108); Creatinine Clr Calc Pharmacy 109.7; Estimated Glomerular Filt Rate > 60; Glucose Random 84 mg/dL (60-115); Lipase 28 U/L (8-78); Magnesium 2.2 mg/dL (1.6-2.6); Potassium 4.3 mmol/L (3.3-5.1); Sodium 142 mmol/L (135-145); Total Protein 6.6 g/dL (6.5-8.0); Troponin-I High Sensitivity < 3.5 ng/L (<3.5-35.0)
[2021-12-16 17:35] LABS: COVID-19 Test Negative (Negative); IDNOW Serial# 9DB6401D
[2021-12-16 17:46] LABS: TSH reflex Free T4 0.94 uIU/mL (0.32-4.0)
[2021-12-16 20:26] LABS: Appearance Urine Clear; Color Urine Yellow; Glucose Urine UA Negative (Negative); Leukocyte Esterase Urine Small (1+) (Negative); Nitrite Urine Negative (Negative); Specific Gravity - Urine <= 1.005 (1.005-1.025); UMIC TRIGGER UACC YES; Urine Blood Trace (Negative); Urine Ketones Negative (Negative); Urine Protein Negative (Neg-Trace)
[2021-12-16 20:44] LABS: Bacteria Urine None Seen (None Seen); Hyaline Casts Urine 0-2 /LPF (0-2); RBC Urine 0-2 /HPF (0-2); Squamous Epithelial Cell Urine 0-2 /HPF (0-2); UACC Culture Trigger YES; WBC Urine 0-5 /HPF (0-5)
[2021-12-16 21:13] VITALS: BP 121/59; PULSE 58; RESP 18; O2SAT 99
[2021-12-16] MEDS: cefTRIAXone sodium 1 GM in 0.9 % Sodium Chloride 50 ML IV (21:44)
[2021-12-16] MEDS: 0.9 % Sodium Chloride 1,000 ML 999 ML IVCONT (21:44)
[2021-12-16 23:02] LABS: C Reactive Protein 0.75 mg/dL (< or = 0.50)
--- NOTE | 2021-12-16 23:57 | PM.IMHP ---
History of Present Illness Date of Service: 12/16/21 Chief Complaint: Generalized weakness This is a 46-year-old male with pertinent history of Down syndrome, dementia, psychosis, urine retention with incomplete bladder emptying who was sent to the ED from residential for evaluation of generalized weakness and difficulty walking. Patient is a poor historian and only says yes to all questions. Unable to obtain history from the patient. History obtained from chart review. Apparently patient was able to walk without assistive devices last week but over the last 1 week he has been having intermittent shuffling gait and difficulty walking. Patient started having difficulty walking which spontaneously started getting better until he was walking at baseline. This was followed by generalized weakness of extremities, difficulty walking and gait disturbance all over again. As per residential staff, patient is sometimes stated weight and cannot get up. Patient denies any pain in extremities or lower back. Unable to obtain review of systems. Review of Systems Review of Systems: Yes Unobtainable due to mental status PMFSH Medical History Allergic rhinitis Anxiety disorder Chronic fatigue syndrome COVID-19 vaccine series completed Dermatitis Down syndrome H/O esophageal reflux Hx: recurrent pneumonia Hyperlipidemia Hypothyroidism Insomnia Joint pain ZEN (obstructive sleep apnea) Resides in rat exterminator care facility Surgical History H/O colonoscopy H/O nasal septoplasty History of left cataract surgery History of lung surgery History of thoracotomy Hx of cataract surgery Hx of dental advent Social History Household Members Other:: residential Housing Other:: residential Are you a primary care transport nurse to a significant other at home: No Do you presently have visiting nurse or other home services: Yes (residential services) Alcohol intake: never Patient Tobacco Use Status: Never used Tobacco Advance Directives: Yes Advance Directives on File: Yes Advance Directives Date on File: 03/31/21 Meds Allergies Allergy/AdvReac Type Severity Reaction Status Date / Time lactose Allergy Intermediate Diarrhea Verified 10/28/21 13:03 Active Medications: Current Medications Pharmacy Consult (Consult Rx Perform Med Rec) 1 each MISCELLANE ONCE STA Stop: 12/16/21 23:39 Home Medications Medication Instructions Recorded Confirmed Last Taken Type cholestyramine (with sugar) 4 gram 1 ea PO DAILY 12/13/19 08/26/21 Unknown History powder for susp in a packet clindamycin phosphate 1 % topical 1 appl topical DAILY 12/13/19 08/26/21 Unknown History solution levothyroxine 88 mcg tablet 88 mcg PO DAILY 12/13/19 08/26/21 Unknown History multivitamin 1 tab PO DAILY 02/26/20 08/26/21 Unknown History ammonium lactate 12 % topical cream 1 appl topical BID 07/11/20 08/26/21 Unknown History ketoconazole 2 % topical cream 1 appl topical DAILY 01/09/21 08/26/21 Unknown History acetaminophen 325 mg tablet 650 mg PO QID PRN 04/09/21 08/26/21 Unknown History (Tylenol) benztropine 0.5 mg tablet 0.5 mg PO DAILY 04/09/21 08/26/21 Unknown History carbamide peroxide 6.5 % ear drops 5 drp otic (ears) Q12H 04/09/21 08/26/21 Unknown History (Debrox) chlorhexidine gluconate 4 % packet topical 04/09/21 08/26/21 Unknown History topical packet fluticasone propionate 50 1 spray intranasal DAILY 04/09/21 08/26/21 Unknown History mcg/actuation nasal spray,suspension (Flonase Allergy Relief) guaifenesin 100 mg/5 mL oral liquid 200 mg PO Q4H PRN 04/09/21 08/26/21 Unknown History paroxetine HCl 40 mg tablet 40 mg PO DAILY 10/28/21 10/28/21 Unknown History risperidone 1 mg tablet 1 mg PO BID 11/14/21 Unknown History Physical Exam Vital Signs and Narrative: Vital Signs: Last Vital Signs Temp 96.8 F 12/16/21 15:11 Pulse 58 12/16/21 21:13 Resp 18 12/16/21 21:13 BP 121/59 L 12/16/21 21:13 Pulse Ox 99 12/16/21 21:13 O2 Del Method 12/16/21 21:13 BMI result Body Mass Index 35.9 Middle-aged male lying in bed in no distress Neck supple, no JVD Regular rate and rhythm, S1-S2 heard Regular breath sounds bilaterally, no wheezing or crackles appreciated Abdomen soft nontender, no guarding, no rigidity Patient is awake, alert. Only saying yes to all questions, unable to assess orientation. Proximal weakness ?intermittent in bilateral lower extremities. Strength normal in upper extremity. 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 Pinprick sensation present throughout. Unable to assess vibration and light touch sensation. Knee reflex left lower extremity 2+, decreased in the right lower extremity. No pronator drift. Was unable to ambulate patient in the ER. Psych: Normal mood No pedal edema Results Labs CBC and Chem 7: 12/16/21 16:57 12/16/21 16:57 Labs: Laboratory Results - last 24 hr 12/16/21 12/16/21 12/16/21 16:40 16:57 16:57 MCV 94.5 MCH 32.0 MCHC 33.9 RDW 12.6 Plt Count 187 MPV 9.8 Immature Gran % (Auto) 0.9 H Neut % (Auto) 64.9 Lymph % (Auto) 25.2 Cochran % (Auto) 6.7 Eos % (Auto) 0.7 Baso % (Auto) 1.6 Lymph # (Auto) 1.4 Cochran # (Auto) 0.4 Eos # (Auto) 0.0 Baso # (Auto) 0.1 Abs Immat Gran (auto) 0.05 H Absolute Neuts (auto) 3.7 Absolute Nucleated RBC 0.000 Nucleated RBC % (auto) 0.0 Anion Gap 14 Estim Creat Clear Calc 109.7 Estimated GFR > 60 Random Glucose 84 Lactic Acid Calcium 9.0 Magnesium 2.2 Total Bilirubin 0.4 Direct Bilirubin < 0.2 AST 27 ALT 22 Alkaline Phosphatase 68 Total Creatine Kinase 28 L Troponin I High Sens C-Reactive Protein 0.75 H Total Protein 6.6 Albumin 4.1 Lipase 28 TSH Urine Color Urine Appearance Urine pH Ur Specific [place] Urine Protein Urine Glucose (UA) Urine Ketones Urine Blood Urine Nitrite Ur Leukocyte Esterase Urine RBC Urine WBC Ur Squamous Epith Cells Urine Bacteria Hyaline Casts COVID-19 (SHOAIB) Negative COVID-19 Clin Com See Note 12/16/21 12/16/21 12/16/21 16:57 16:57 16:57 MCV MCH MCHC RDW Plt Count MPV Immature Gran % (Auto) Neut % (Auto) Lymph % (Auto) Cochran % (Auto) Eos % (Auto) Baso % (Auto) Lymph # (Auto) Cochran # (Auto) Eos # (Auto) Baso # (Auto) Abs Immat Gran (auto) Absolute Neuts (auto) Absolute Nucleated RBC Nucleated RBC % (auto) Anion Gap Estim Creat Clear Calc Estimated GFR Random Glucose Lactic Acid 0.8 Calcium Magnesium Total Bilirubin Direct Bilirubin AST ALT Alkaline Phosphatase Total Creatine Kinase Troponin I High Sens < 3.5 C-Reactive Protein Total Protein Albumin Lipase TSH 0.94 Urine Color Urine Appearance Urine pH Ur Specific [place] Urine Protein Urine Glucose (UA) Urine Ketones Urine Blood Urine Nitrite Ur Leukocyte Esterase Urine RBC Urine WBC Ur Squamous Epith Cells Urine Bacteria Hyaline Casts COVID-19 (SHOAIB) COVID-19 Clin Com 12/16/21 20:18 MCV MCH MCHC RDW Plt Count MPV Immature Gran % (Auto) Neut % (Auto) Lymph % (Auto) Cochran % (Auto) Eos % (Auto) Baso % (Auto) Lymph # (Auto) Cochran # (Auto) Eos # (Auto) Baso # (Auto) Abs Immat Gran (auto) Absolute Neuts (auto) Absolute Nucleated RBC Nucleated RBC % (auto) Anion Gap Estim Creat Clear Calc Estimated GFR Random Glucose Lactic Acid Calcium Magnesium Total Bilirubin Direct Bilirubin AST ALT Alkaline Phosphatase Total Creatine Kinase Troponin I High Sens C-Reactive Protein Total Protein Albumin Lipase TSH Urine Color Yellow Urine Appearance Clear Urine pH 7.0 Ur Specific [place] <= 1.005 Urine Protein Negative Urine Glucose (UA) Negative Urine Ketones Negative Urine Blood Trace H Urine Nitrite Negative Ur Leukocyte Esterase Small (1+) H Urine RBC 0-2 Urine WBC 0-5 Ur Squamous Epith Cells 0-2 Urine Bacteria None Seen Hyaline Casts 0-2 COVID-19 (SHOAIB) COVID-19 Clin Com Imaging Radiologist's Impressions: Impressions Chest X-Ray 12/16/21 16:20 FINDINGS/IMPRESSION: The study is significantly limited by portable technique and low lung volumes. Cannot exclude small bibasilar patchy densities, raising the possibility of atelectasis and/or infiltrate. No consolidation, effusion or pneumothorax is seen. The cardiac silhouette is poorly evaluated. The mediastinum, diaphragm, bones and soft tissues appear unremarkable. Chest CT 12/16/21 18:41 IMPRESSION: Exam is demonstrating a pericardial effusion which is small volume. Lung gupta there is bronchial thickening. Some patchy opacities at the right base could represent a small area of atelectasis or infiltrate. Probable atelectasis at the left base. Mild pleural change in the right upper lung laterally may be chronic and some probable chronic changes in the right middle lobe anterior. Somewhat nodular. Attention to follow-up Some scattered areas of groundglass opacity may represent small airways disease. Recommend follow-up scan low-dose noncontrast in 6 months for continued evaluation Head CT 12/16/21 21:12 IMPRESSION: There is no acute midline shift or mass effect or hemorrhage. Chronic Change in the occipital region as described. There are some scattered areas of decreased attenuation in the white matter in this young patient. These could represent areas of white matter disease or infarct. Recommendation is MRI pre and postcontrast for full evaluation with diffusion weighted imaging. Assessment and Plan (1) Bilateral leg weakness: Status: Acute (2) Psychosis: Status: Acute (3) Urinary retention with incomplete bladder emptying: Status: Acute (4) Dementia in other diseases classified elsewhere with behavioral disturbance: Status: Acute (5) Down syndrome: Status: Acute Plan This is a 46-year-old male with pertinent history of Down syndrome, dementia, psychosis, urine retention with incomplete bladder emptying who was sent to the ED from residential for evaluation of generalized weakness and difficulty walking #. Bilateral lower extremity weakness, acute #. Unsteady gait -will admit patient. Unclear etiology. Obtain MRI of the brain to rule out brainstem etiology. Also consulting Neurology for further recommendations. No muscle tenderness and CPK within normal limits. CRP not significantly elevated. As per history, weakness is ?intermittent and therefore ?conversion disorder but we will rule out organic etiology in a patient who is poor historian. Defer LP for now. TSH is within normal limits #. Urinary retention with incomplete bladder emptying -continue p.o. medications bethanechol and terazosin #. Dementia with Psychosis -continue risperidone, clonazepam, paroxetine, donepezil and Namenda #. Hypothyroidism -on levothyroxine #. Down syndrome DVT prophylaxis: Lovenox 40 mg daily Diet: Regular diet Full code Patient will require two night minimum hospital stay for full evaluation and management of acute onset bilateral lower extremity weakness and evaluation by physical therapy for safe disposition. Quality Stroke Does the patient have a stroke diagnosis?: No VTE Prior VTE?: No VTE Risk Level:: Medical - moderate - high VTE Device Contraindication: Treatment Not Indicated VTE Drug Contraindication: N/A - Med Ordered
[2021-12-17] VITALS: BP 97/51; PULSE 54; RESP 16; TEMP 36.7; O2SAT 97
[2021-12-17] MEDS: risperiDONE 0.5 MG TABLET PO ×3 (00:50→19:26)
[2021-12-17] MEDS: clonazePAM 0.5 MG TABLET PO ×2 (00:50→19:26)
[2021-12-17] MEDS: Enoxaparin Sodium 40 MG/0.4 ML SYRINGE SUBCUT ×2 (00:51→23:56)
[2021-12-17] MEDS: Acetaminophen 325 MG TABLET 650 MG PO ×2 (01:34→08:32)
[2021-12-17 02:00] VITALS: BP 118/74; PULSE 78; RESP 16; TEMP 36.7; O2SAT 97
--- NOTE | 2021-12-17 03:56 | PC.NURSE ---
Nurse to nurse report given to EROS Hackett in overflow unit. Patient to be transferred to overflow unit bed 2 in a stretcher bed.
[2021-12-17 06:41] LABS: MANUAL DIFF FLAG NO
[2021-12-17 06:55] LABS: Basophils Absolute Auto 0.1 X10*3/uL (0.0-0.2); Basophils Percent Auto 1.1 % (0-2); Eosinophils Percent Auto 0.6 % (0-4); Hematocrit 41.2 % (42.0-52.0); Hemoglobin 13.5 g/dl (14.0-18.0); Imm Gran Abs Auto 0.04 X10*3/uL (0.00-0.03); Imm Gran Pct Auto 0.6 % (0.0-0.4); Lymphocytes Absolute Auto 1.9 X10*3/uL (1.2-4.9); Lymphocytes Percent Auto 27.2 % (20-40); Mean Corpuscular HGB Conc 32.8 g/dl (31.0-36.0); Mean Corpuscular Hemoglobin 31.6 pg (27.0-33.0); Mean Corpuscular Volume 96.5 fL (80.0-98.0); Mean Platelet Volume 10.1 fL (9.4-12.4); Monocytes Absolute Auto 0.6 X10*3/uL (0.1-1.2); Monocytes Percent Auto 7.9 % (2-11); Neutrophils Absolute Auto 4.4 x10*3/uL (2.0-8.3); Neutrophils Percent Auto 62.6 % (45-73); Platelet Count 185 X10*3/uL (160-400); Red Blood Count 4.27 X10*6/uL (4.60-5.80); Red Cell Distribution Width 12.7 % (11.0-16.0)
[2021-12-17 06:58] LABS: Anion Gap 13 (12-20); Blood Urea Nitrogen 8 mg/dL (9-16); Calcium 8.6 mg/dL (8.4-10.2); Carbon Dioxide 30 mmol/L (22-29); Chloride 101 mmol/L (96-108); Creatinine Clr Calc Pharmacy 115.5; Estimated Glomerular Filt Rate > 60; Glucose Random 86 mg/dL (60-115); Potassium 3.9 mmol/L (3.3-5.1); Sodium 140 mmol/L (135-145)
[2021-12-17 08:00] VITALS: BP 158/75; PULSE 69; RESP 16; TEMP 36.3; O2SAT 97
[2021-12-17] MEDS: Memantine HCl 10 MG TABLET PO (08:32)
[2021-12-17] MEDS: 0.9 % Sodium Chloride Flush 3 ML SYRINGE IVFLUSH ×2 (08:32→15:17)
[2021-12-17] MEDS: Doxazosin Mesylate 2 MG TABLET 4 MG PO (08:32)
[2021-12-17] MEDS: Donepezil HCl 10 MG TABLET PO (08:32)
[2021-12-17] MEDS: Levothyroxine Sodium 88 MCG TABLET PO (08:32)
[2021-12-17 09:02] VITALS: BP 158/75; PULSE 69; O2SAT 97
[2021-12-17] MEDS: Bethanechol Chloride 25 MG TABLET PO ×2 (09:27→19:26)
[2021-12-17] MEDS: PARoxetine HCL 40 MG TABLET PO (09:27)
--- NOTE | 2021-12-17 09:29 | PHA.MEDREC ---
Pharmacy Consult ? Medication Reconciliation Pharmacy has completed the medication reconciliation. Spoke to alf director, Abeba, . Confirm list with me on phone.
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
--- NOTE | 2021-12-17 12:35 | MHC.CM.PN ---
Addendum entered by Linda Farmer 12/17/21 12:39: pt is fully covid vaccinated Original Note: met with pt and his mother/guardian evelyn pryor additionally spoke with juanis lang directoir for [facility] who overseas his longterm where he lives with 3 other residents ,pt can return to group if he is indepndetn in ambulating if he is not mother is agreeable to rehab in [facility]..referrals made
[2021-12-17 15:29] VITALS: BP 99/54; PULSE 89; RESP 18; TEMP 36.9; O2SAT 97
--- NOTE | 2021-12-17 16:20 | PM.NEUROCN ---
History of Present Illness Data of Consult Service Date: 12/17/21 Primary Care Provider: Kd Mi DO HPI Reason for consult: Weakness and difficulty walking 46 years old man with Down syndrome who was in hospital with new onset of generalized weakness and difficulty walking. According to nursing he was not to himself. When I talked to him he was not in any distress but was complaining of someone at his fdc. There was no recent fall or trauma or any cold or flu-like illness fever chills. There was no complaint of tingling or numbness. Review of Systems Review of Systems: No headache back pain or loss of bladder control PMFSH Past Medical History Medical History Allergic rhinitis Anxiety disorder Chronic fatigue syndrome COVID-19 vaccine series completed Dermatitis Down syndrome H/O esophageal reflux Hx: recurrent pneumonia Hyperlipidemia Hypothyroidism Insomnia Joint pain ZEN (obstructive sleep apnea) Resides in retirement care facility Surgical History Surgical History H/O colonoscopy H/O nasal septoplasty History of left cataract surgery History of lung surgery History of thoracotomy Hx of cataract surgery Hx of dental nondenominational Social History Social History Household Members Other:: fdc Housing Other:: fdc Are you a primary grounds caretaker to a significant other at home: No Do you presently have visiting nurse or other home services: Yes (fdc services) Alcohol intake: never Patient Tobacco Use Status: Never used Tobacco Advance Directives: Yes Advance Directives on File: Yes Advance Directives Date on File: 03/31/21 service: No Meds Allergies Allergy/AdvReac Type Severity Reaction Status Date / Time lactose Allergy Intermediate Diarrhea Verified 10/28/21 13:03 Active Medications: Current Medications Acetaminophen (Acetaminophen 325 Mg Tablet) 650 mg PO Q6H PRN PRN Reason: Pain, Mild (Pain Scale 1-3) Last Admin: 12/17/21 08:32 Dose: 650 mg Bethanechol Chloride (Bethanechol Chloride 25 Mg Tablet) 25 mg PO BID [facility] Last Admin: 12/17/21 09:27 Dose: 25 mg Clonazepam (Clonazepam 0.5 Mg Tablet) 0.5 mg PO BEDTIME [facility] Last Admin: 12/17/21 00:50 Dose: 0.5 mg Donepezil HCl (Donepezil Hcl 10 Mg Tablet) 10 mg PO DAILY [facility] Last Admin: 12/17/21 08:32 Dose: 10 mg Doxazosin Mesylate (Doxazosin Mesylate 2 Mg Tablet) 4 mg PO DAILY [facility] Last Admin: 12/17/21 08:32 Dose: 4 mg Enoxaparin Sodium (Enoxaparin Sodium 40 Mg/0.4 Ml Syringe) 40 mg SUBCUT Q24H [facility] Last Admin: 12/17/21 00:51 Dose: 40 mg Levothyroxine Sodium (Levothyroxine Sodium 88 Mcg Tablet) 88 mcg PO DAILY [facility] Last Admin: 12/17/21 08:32 Dose: 88 mcg Melatonin (Melatonin 3 Mg Tablet) 6 mg PO BEDTIME PRN PRN Reason: Insomnia Memantine (Memantine Hcl 10 Mg Tablet) 10 mg PO DAILY [facility] Last Admin: 12/17/21 08:32 Dose: 10 mg Ondansetron HCl (Ondansetron Hcl 4 Mg/2 Ml Vial) 4 mg IVPUSH Q8H PRN PRN Reason: Nausea and Vomiting Paroxetine HCl (Paroxetine Hcl 40 Mg Tablet) 40 mg PO DAILY [facility] Last Admin: 12/17/21 09:27 Dose: 40 mg Risperidone (Risperidone 0.5 Mg Tablet) 0.5 mg PO BID [facility] Last Admin: 12/17/21 08:32 Dose: 0.5 mg Sodium Chloride (0.9 % Sodium Chloride Flush 3 Ml Syringe) 3 ml IVFLUSH QSHIFT [facility] Last Admin: 12/17/21 15:17 Dose: 3 ml Home Medications Medication Instructions Recorded Confirmed Last Taken Type cholestyramine (with sugar) 4 gram 1 ea PO DAILY 12/13/19 12/17/21 Unknown History powder for susp in a packet clindamycin phosphate 1 % topical 1 appl topical DAILY 12/13/19 12/17/21 Unknown History solution levothyroxine 88 mcg tablet 88 mcg PO DAILY@0600 12/13/19 12/17/21 Unknown History multivitamin 1 tab PO DAILY 02/26/20 12/17/21 Unknown History ammonium lactate 12 % topical cream 1 appl topical BID 07/11/20 12/17/21 Unknown History ketoconazole 2 % topical cream 1 appl topical DAILY 01/09/21 12/17/21 Unknown History acetaminophen 325 mg tablet 500 mg PO QID PRN Pain 04/09/21 12/17/21 Unknown History (Tylenol) paroxetine HCl 40 mg tablet 40 mg PO BEDTIME 10/28/21 12/17/21 Unknown History risperidone 1 mg tablet 0.5 mg PO BID 11/14/21 12/17/21 Unknown History benzoyl peroxide 10 % topical 1 appl topical BEDTIME 12/17/21 12/17/21 Unknown History cleanser (Panoxyl) bethanechol chloride 50 mg tablet 100 mg PO BID 12/17/21 12/17/21 Unknown History clonazepam 0.5 mg tablet 0.25 mg PO DAILY PRN Anxiety 12/17/21 12/17/21 Unknown History loratadine 10 mg tablet 10 mg PO DAILY 12/17/21 12/17/21 Unknown History Physical Exam Vital Signs: Vital Signs: Last Vital Signs Temp 98.5 F 12/17/21 15:29 Pulse 89 12/17/21 15:29 Resp 18 12/17/21 15:29 BP 99/54 L 12/17/21 15:29 Pulse Ox 97 12/17/21 15:29 O2 Del Method 12/17/21 15:29 BMI result Body Mass Index 35.9 Neuro: Other: He was alert and awake with normal spontaneity of speech fluency comprehension and affect. There was moderate left-sided ptosis, which according to nursing was chronic. Visual gupta are full to confrontation. Face was symmetrical. There was no obvious focal arm or leg weakness. Deep tendon reflexes were 2+ with flexor plantars. He was able to lift each leg up against gravity without difficulty. Speech was normal. Results Labs CBC & Chem 7: 12/17/21 06:07 12/17/21 06:07 Labs: Short CBC 12/16/21 12/17/21 Range/Units 16:57 06:07 WBC 5.6 7.0 (4.8-10.8) X10*3/uL Hgb 14.6 13.5 L (14.0-18.0) g/dl Hct 43.1 41.2 L (42.0-52.0) % Plt Count 187 185 (160-400) X10*3/uL BMP 12/16/21 12/17/21 16:57 06:07 Sodium 142 140 Potassium 4.3 3.9 Chloride 103 101 Carbon Dioxide 29 30 H BUN 10 8 L Creatinine 0.80 0.76 Calcium 9.0 8.6 Cardiac Enzymes 12/16/21 Range/Units 16:57 Total Creatine Kinase 28 L (38-174) U/L Liver Function 12/16/21 Range/Units 16:57 Total Bilirubin 0.4 (0.0-1.0) mg/dL Direct Bilirubin < 0.2 (0.0-0.5) mg/dL AST 27 (5-37) U/L ALT 22 (0-40) U/L Alkaline Phosphatase 68 (39-117) U/L Albumin 4.1 (3.5-5.0) g/dL Urine 12/16/21 Range/Units 20:18 Urine Color Yellow Urine Appearance Clear Urine pH 7.0 (5.0-9.0) Ur Specific [place] <= 1.005 (1.005-1.025) Urine Protein Negative (Neg-Trace) mg/dL Urine Glucose (UA) Negative (Negative) mg/dL His MRI of brain revealed moderate central cortical atrophy and mild to moderate chronic microvascular ischemic changes but no acute lesion. Ventricles were not large enough to suggest normal pressure hydrocephalus or out of proportion to atrophy. EEG was okay. Microbiology Microbiology Results: Microbiology 12/16/21 20:57 Urine clean catch - Urine vazquez top Urine Culture - Preliminary Culture in progress. Assessment and Plan (1) Bilateral leg weakness: Status: Acute 46 years old man with Down syndrome was here with difficulty walking but nursing also suggested that he was not to himself. His neurological examination did not reveal any obvious sign of upper motor neuron pathology and also presence of reflexes in legs were against possibility of acute neuropathy. UTI might have contributed to his lethargy and weakness and difficulty walking. I recommend appropriate investigation and treatment for any infection and involving PT OT to check his mobility and need for any assistive devices. If situation does not improve, an outpatient EMG nerve conduction study can be considered Procedures Date of Service Date of Service: 12/17/21
--- NOTE | 2021-12-17 17:42 | PC.NURSE ---
message sent to Dr. Boyd questioning need for antibiotics
[2021-12-17 20:25] VITALS: BP 99/62; PULSE 61; RESP 18; TEMP 36.7; O2SAT 96
[2021-12-18] VITALS: BP 113/61; PULSE 62; RESP 18; TEMP 36.8; O2SAT 99
[2021-12-18] MEDS: 0.9 % Sodium Chloride Flush 3 ML SYRINGE IVFLUSH ×3 (00:36→17:17)
[2021-12-18 07:24] VITALS: BP 100/56; PULSE 58; RESP 18; TEMP 36.1; O2SAT 97
[2021-12-18 08:24] VITALS: BP 100/56; PULSE 58; O2SAT 97
[2021-12-18] MEDS: Memantine HCl 10 MG TABLET PO (09:47)
[2021-12-18] MEDS: PARoxetine HCL 40 MG TABLET PO (09:47)
[2021-12-18] MEDS: Bethanechol Chloride 25 MG TABLET PO ×2 (09:47→20:00)
[2021-12-18] MEDS: Doxazosin Mesylate 2 MG TABLET 4 MG PO (09:47)
[2021-12-18] MEDS: Levothyroxine Sodium 88 MCG TABLET PO (09:47)
[2021-12-18] MEDS: Donepezil HCl 10 MG TABLET PO (09:47)
[2021-12-18] MEDS: risperiDONE 0.5 MG TABLET PO ×2 (09:47→19:59)
--- NOTE | 2021-12-18 11:14 | MHC.CM.PN ---
Addendum entered by Cris Garcia RN 12/18/21 11:31: MAT PACKER SOURAV [phone] STATES PATIENT DOPES HAVE A VOSS. COPY REQUESTED JESSICA (FOLLOWING) MADE AWARE Original Note: GUARDIAN DOES NOT HAVE AUTHORITY TO ADMIT TO SNF. WILL NEED INTENT TO ADMIT
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
--- NOTE | 2021-12-18 14:14 | MHC.CM.PN ---
Addendum entered by Cris Garcia RN 12/18/21 14:30: MAMADOU LIMON MD IS OSMAR GODDARD INTENT FAXED TO [facility] Original Note: [facility]OSS TREATMENT ORDER RECE[facility] MAMADOU IS OFFERING A BED BUT HAS NOT YET STATED WHICH BUILDING. NOTICE OF INTENT TO ADMIT TO A SNF (FOR LESS THAN 30 DAYS) TO BE COMPLETED AND SENT TO [facility] ([facility] FOR FACILITY) STATES THAT POSSIBLE NO NEED FOR PASRR LEVEL ONE BUT SHE WILL GET BACK TO T/W. (PATIENT HAS DEMENTIA AND INTELLECTUAL DISABILITY.
[2021-12-18 15:10] VITALS: BP 102/55; PULSE 80; RESP 16; TEMP 36.6; O2SAT 99
--- NOTE | 2021-12-18 15:36 | MHC.CM.PN ---
JESSICA IS DOING THE PASRR LEVEL 1 INTENT HAS BEEN FILED AWAITING DOCKET NUMBER.
[2021-12-18] MEDS: clonazePAM 0.5 MG TABLET PO (20:00)
[2021-12-18 23:26] VITALS: BP 125/81; PULSE 63; RESP 16; TEMP 36.2; O2SAT 96
[2021-12-19] MEDS: 0.9 % Sodium Chloride Flush 3 ML SYRINGE IVFLUSH ×2 (02:55→09:48)
[2021-12-19 07:42] VITALS: BP 102/62; PULSE 58; RESP 18; TEMP 36.3; O2SAT 97
[2021-12-19 08:18] VITALS: BP 102/62; PULSE 58; O2SAT 97
[2021-12-19] MEDS: Doxazosin Mesylate 2 MG TABLET 4 MG PO (09:48)
[2021-12-19] MEDS: Donepezil HCl 10 MG TABLET PO (09:48)
[2021-12-19] MEDS: Levothyroxine Sodium 88 MCG TABLET PO (09:48)
[2021-12-19] MEDS: risperiDONE 0.5 MG TABLET PO (09:48)
[2021-12-19] MEDS: Memantine HCl 10 MG TABLET PO (09:48)
[2021-12-19] MEDS: Bethanechol Chloride 25 MG TABLET PO (09:48)
[2021-12-19] MEDS: PARoxetine HCL 40 MG TABLET PO (09:48)
--- NOTE | 2021-12-19 11:16 | PM.DS ---
DS: Providers Provider Date of Service: 12/19/21 Date of admission: 12/17/21 00:19 Date of discharge: 12/19/21 Primary care physician: Kd Mi DO Consults: 12/17/21 00:15 Consult to Neurology Routine Consulting Provider: [facility] Reason for consultation: lower extremity weakness bilateral Has provider been notified: No [facility] Discharging clinician: Sonia Ghosh DS: Diagnosis Discharge Diagnosis (1) Bilateral leg weakness: Status: Acute DS: Summary Hospital Course Hospital Course: From H&P on day of admission This is a 46-year-old male with pertinent history of Down syndrome, dementia, psychosis, urine retention with incomplete bladder emptying who was sent to the ED from custodial for evaluation of generalized weakness and difficulty walking.? Patient is a poor historian and only says yes to all questions.? Unable to obtain history from the patient.? History obtained from chart review.? Apparently patient was able to walk without assistive devices last week but over the last 1 week he has been having intermittent shuffling gait and difficulty walking.? Patient started having difficulty walking which spontaneously started getting better until he was walking at baseline.? This was followed by generalized weakness of extremities, difficulty walking and gait disturbance all over again.? As per custodial staff, patient is sometimes stated weight and cannot get up.? Patient denies any pain in extremities or lower back.? Unable to obtain review of systems Weakness/gait disturbance no muscle tenderness. CPK + CRP not elevated. Brain MRI with chronic changes, no acute changes. Seen by Neuro - no further workup at this time, if no improvement can consider outpatient EMG studies urine culture growing group b strep - probable contaminant, no leukocytosis or fever and UA not suggestive of infection. Seen by PT who recommended STR Anticipate less then 30 day stay at SNF. No changes were made to baseline medications Time Spent with Patient Time attestation: Total time spent providing and/or coordinating discharge services: Discharge coordination time: Greater than 30 minutes Quality: Safe Use of Opioids Does Pt have an Active Cancer Diagnosis on the Problem List?: No Quality: Stroke Does the patient have a stroke diagnosis?: No Physical Exam Vital Signs: Vital Signs: Last Vital Signs Temp 97.4 F 12/19/21 07:42 Pulse 58 12/19/21 08:18 Resp 18 12/19/21 07:42 BP 102/62 12/19/21 08:18 Pulse Ox 97 12/19/21 08:18 O2 Del Method 12/19/21 07:42 BMI result Body Mass Index 35.9 Const: General: cooperative, comfortable, no acute distress, alert and awake Nutritional Appearance: overweight Resp: Effort & Inspection: normal respiratory effort and able to speak in complete sentences Auscultation: clear to auscultation bilaterally Cardio: Rate: regular rate Heart sounds: S1 normal heart sound present and S2 normal heart sound present GI: Palpation (GI): Soft to palpation and nontender Neuro: General: CN's II-XI intact bilaterally Extrem: Other: moving all 4 extremities spontaneously DS: Data Data Completed and Pending Labs on day of discharge: Preliminary micro results at discharge 12/16/21 19:23 Blood Culture - Preliminary Blood - Venous No growth after 48 hours. 12/16/21 19:23 Blood Culture - Preliminary Blood - Venous No growth after 48 hours. Discharge Plan Discharge Anticipated Discharge Date/Time: 12/19/21 10:40 Patient Disposition: Xfer SNF Discharge Diagnosis: Leg weakness Referrals: [facility]Outside] - 1 Week Kd Mi DO [Primary Care Provider] - 1 Week Discharge Medications: Continued terazosin 5 mg capsule 5 mg PO BEDTIME 30 Days Qty: 90 3RF risperidone 1 mg tablet 0.5 mg PO BID benzoyl peroxide [Panoxyl] 10 % Cleanser 1 appl TOPICAL BEDTIME loratadine 10 mg Tablet 10 mg PO DAILY bethanechol chloride 50 mg tablet 100 mg PO BID clonazepam 0.5 mg tablet 0.5 mg PO DAILY MDD 3 tabs PRN (Reason: abnormal behavior) Qty: 6 0RF clonazepam 0.5 mg Tablet 0.25 mg PO DAILY PRN (Reason: Anxiety) Qty: 4 0RF ammonium lactate 12 % cream 1 appl topical BID Rx Instructions: to feet multivitamin Tablet 1 tab PO DAILY cholestyramine (with sugar) 4 gram powder in packet 1 ea PO DAILY clindamycin phosphate 1 % solution 1 appl topical DAILY levothyroxine 88 mcg tablet 88 mcg PO DAILY@0600 ketoconazole 2 % cream 1 appl topical DAILY donepezil [Aricept] 10 mg tablet 10 mg PO BEDTIME Qty: 30 6RF memantine [Namenda] 10 mg tablet 10 mg PO BID Qty: 60 6RF acetaminophen [Tylenol] 325 mg tablet 500 mg PO QID PRN (Reason: Pain) paroxetine HCl 40 mg tablet 40 mg PO BEDTIME Discharge Orders: Discharge Order (Routine); Ordered 12/19/21 Ordered By: Sonia Ghosh Activity on Discharge: As tolerated Stand Alone Forms: Patient Portal Discharge page Care Plan Goals: see below Health Concerns: Leg weakness/unsteady gait Plan of Treatment: No source of infection was identified. Brain MRI showed no acute changes. seen by neuro - no acute intervention required, can consider outpatient EMG studies if no improvement in weakness. Seen by PT who recommended STR upon discharge Assessment: see discharge summary Discharge Date/Time: 12/19/21 15:45
--- NOTE | 2021-12-19 11:54 | MHC.CM.PN ---
Addendum entered by Mari aVictoria Cabrera 12/19/21 12:45: DC SUMMARY AND NEGATIVE PCR RESULTS SENT TO [facility]IA [employer] Original Note: [facility] 1430 [facility] PARENTS/GUARDIANS INFORMED AT BEDSIDE [place]OURAV, KASH [employer] RN, WAS ALSO CONTACTED AND SHE WILL SEND STAFF TO [facility] AT 1500
[2021-12-19 12:34] LABS: Influenza A PCR NEGATIVE (Negative); Influenza B PCR NEGATIVE (Negative); Resp Syncy Virus RNA Qual PCR NEGATIVE (Negative); SARS COV2 PCR INHOUSE NEGATIVE (Negative)
--- NOTE | 2021-12-19 16:00 | PC.NURSE ---
Alert and responsive. VSS, afebrile, no acute resp. distress noted. Took all schedule meds as ordered. Parents at bedside. New order to discharge patient to [facility]. Report called in to nurse Boothe. report given to crib pad maker. Patient left via stretcher, accompanied by 2EMTs.
== END 2021-12-19 15:45 | disposition skilled nursing facility (03) | DRG 556 ==
LOC: HO.ED 21:22 → HO.EDOVER 12-17 00:25 → HO.S3 12-17 16:16
PROVIDERS: Emergency Medicine; Admitting Provider Student in an Organized Health Care Education/Training Program; Emergency Provider Internal Medicine; PCP Family Medicine; Visit Provider Physician Assistant Medical
DX: R26.2 Difficulty in walking, not elsewhere classified (principal); F02.82 Dementia in other diseases classified elsewhere, unspecified severity, with psychotic disturbance; G93.32 Myalgic encephalomyelitis/chronic fatigue syndrome; G30.9 Alzheimer's disease, unspecified; R33.9 Retention of urine, unspecified; Q90.9 Down syndrome, unspecified; E03.9 Hypothyroidism, unspecified; E78.5 Hyperlipidemia, unspecified; G47.33 Obstructive sleep apnea (adult) (pediatric); Z20.822 Contact with and (suspected) exposure to COVID-19; Z79.890 Hormone replacement therapy; Z79.899 Other long term (current) drug therapy
CPT/HCPCS: 0241U; 36415; 70450; 70553; 71045; 71250; 74018; 80048; 80076; 81001; 82550; 83605; 83690; 83735; 84443; 84484; 85025; 86140; 87040; 87086; 87147; 87635; 93005; 97116; 97162; 97166; 97530; 99285; A9585; J0696; J1650

== ENCOUNTER → 2022-01-20 13:36 | Outpatient (BNVA) | payer MEDICARE, MEDICAID, SELFPAY | PROVIDERS: PCP Family Medicine; Visit Provider Psychiatry & Neurology Neurology | DX: F29 Unspecified psychosis not due to a substance or known physiological condition (principal); R44.1 Visual hallucinations; R44.2 Other hallucinations; R44.0 Auditory hallucinations; F02.818 Dementia in other diseases classified elsewhere, unspecified severity, with other behavioral disturbance; Q90.9 Down syndrome, unspecified; G47.33 Obstructive sleep apnea (adult) (pediatric) | CPT/HCPCS: Q3014 ==